=== PATIENT | male | born 1935 | race Caucasian/White ===

== ENCOUNTER 2019-12-20 23:44 | Inpatient (IN) | payer MEDICARE, OTHER ==
[~2019-12-20] VITALS: Ht 175.3 cm; Wt 86.2 kg
[~2019-12-20 23:44] MED LIST: CEPH500T PO
[2019-12-21 01:10] VITALS: BP 155/88
--- NOTE | 2019-12-21 01:10 | NUR ---
GPS RN-NOTE:ADMISSION ADMITTED AN 84-YR OLD MALE, FROM [facility]. ADMITTED ON A 5150 FOR DTS. PER HOLD, PT HAS A HISTORY OF DEPRESSION. GRIEVING OVER THE LOSS OF HIS CAT. HE TOOK APPROX 25 PILLS OF XANAX IN AN EFFORT TO "END IT ALL". UPON FACE TO FACE ASSESSMENT, PT IS A/OX3, COOPERATIVE, DEPRESSED, GUARDED, UNKEMPT AND DISHEVELED. PT HAS SUPRAPUBIC CATHETER FR 16, PT ABLE TO VOID WITHOUT ANY DIFFICULTY. PT WAS ADVISED OF HIS HOLD. PT'S RIGHTS HANDBOOK AND A GUIDE TO PRESCRIPTION MEDICATIONS GIVEN. IN NO APPARENT DISTRESS NOTED. NO BELONGINGS/CONTRABAND TAKEN FROM PT. AT ADMISSION. PT. IS UNDER THE PSYCHIATRIC CARE OF DR. LOPEZ ORDERS OBTAINED. AND THE MEDICAL CARE OF DR. BERG. MD AWARE OF PATIENT'S ADMISSION AND MEDS NEEDS TO BE RECONCILED. SKIN BODY ASSESSMENT DONE. WOUND CONSULT TRIGGERED. PT REFUSED FLU VACCINE, OFFERED X3, EDUCATED PT REGARDING THE IMPORTANCE OF TREATMENT COMPLIANCE. PT. CONTINUED TO REFUSE. BED LOCKED AND PLACED IN LOWEST POSITION TO MAINTAIN SAFETY. FALL PRECAUTIONS IMPLEMENTED. WILL CONTINUE TO MONITOR Q15 MIN ROUNDS FOR SAFETY AND BEHAVIOR. Addendum: 12/21/19 at 0558 by MERT WEBBER RN PATIENT IS ALERT AND ORIENTED X1-2, CONFUSED AND DISORGANIZED
[2019-12-21] MEDS ORDERED: VENL75CA62 PO (01:34)
[2019-12-21] MEDS ORDERED: METF-440 PO (01:34)
[2019-12-21] MEDS ORDERED: ALPR0.255 PO (01:34)
[2019-12-21] MEDS ORDERED: FINA5TAB11 PO (01:34)
[2019-12-21] MEDS ORDERED: OMEP20CA15 PO (01:34)
[2019-12-21] MEDS ORDERED: TAMS-12 PO (01:37)
[2019-12-21] MEDS ORDERED: LEVE500T20 PO (01:37)
[2019-12-21] MEDS ORDERED: FAMO20TA8 PO (01:39)
[2019-12-21] MEDS ORDERED: ATOR40TA PO (01:46)
[2019-12-21] MEDS ORDERED: CLOP75TA15 PO (01:49)
[2019-12-21] MEDS ORDERED: MIRT15TA PO (01:51)
[2019-12-21] MEDS ORDERED: DULO60CA45 PO (01:57)
[2019-12-21] MEDS ORDERED: LORAZEPAM 0.5 MG TABLET PO PRN (02:30)
[2019-12-21] MEDS ORDERED: ZOLPIDEM TARTRATE 5 MG TABLET PO PRN (02:30)
[2019-12-21] MEDS ORDERED: ACETAMINOPHEN 325 MG TABLET PO PRN (02:30)
[2019-12-21] MEDS ORDERED: BLOOD SUGAR DIAGNOSTIC 1 EACH STRIP IN ONE (02:30)
[2019-12-21] MEDS ORDERED: MAGNESIUM HYDROXIDE 30 ML UDC PO PRN (02:30)
[2019-12-21] MEDS ORDERED: MAG HYDROX/AL HYDROX/SIMETH 30 ML UDC PO PRN (02:30)
--- NOTE | 2019-12-21 06:00 | NUR ---
GPS-RN NOTE: ANXIETY PATIENT IS ANXIOUS AND RESTLESS. ADMINISTERED ATIVAN 0.5MG PO ORDERED. WILL CONTINUE TO MONITOR PT'S SAFETY.
[2019-12-21 07:42] LABS: BASOPHILS % (AUTO) 0.5 % (0.0-2.0); EOSINOPHILS % (AUTO) 4.9 % (0.0-6.0); HEMATOCRIT 45 % (39-51); HEMOGLOBIN 14.8 g/dL (13.5-17.5); LYMPHOCYTES # (AUTO) 1.9 /CMM (0.8-4.8); MEAN CORPUSCULAR HGB CONC 33 g/dl (31.0-36.0); MEAN CORPUSCULAR VOLUME 90 fL (80-96); MONOCYTES # (AUTO) 0.4 /CMM (0.1-1.30); MONOCYTES % (AUTO) 3.9 % (2.0-12.0); NEUTROPHILS # (AUTO) 6.4 /CMM (1.8-8.9); NEUTROPHILS % (AUTO) 69.7 % (43.0-81.0); PLATELET COUNT (AUTO) 297 /CMM (150-450); RED BLOOD CELL COUNT(AUTO) 4.98 MIL/uL (4.5-6.0); WHITE BLOOD COUNT (AUTO) 9.3 K/uL (4.3-11.0)
[2019-12-21 07:53] LABS: CALCIUM, SERUM 9.3 mg/dL (8.5-10.1); CREATININE 0.9 mg/dL (0.6-1.3); POTASSIUM 3.9 mmol/L (3.5-5.1)
[2019-12-21 08:00] VITALS: BP 142/82
--- NOTE | 2019-12-21 09:02 | NUR ---
GPS RN NOTES REPORT GIVEN TO CHARGE NURSE RALPH FOR CONTINUATION OF CARE.
[2019-12-21 09:18] LABS: BILIRUBIN,URINE NEGATIVE (NEGATIVE); BLOOD, URINE TRACE Ery/uL (NEGATIVE); COLOR,URINE YELLOW (YELLOW); KETONES,URINE NEGATIVE (NEGATIVE); LEUKOCYTE ESTERASE ,URINE SMALL (NEGATIVE); NITRITE, URINE NEGATIVE (NEGATIVE); PH,URINE 6.5 (5.0-8.0); PROTEIN,URINE NEGATIVE (NEGATIVE); UGLUCOSE NEGATIVE (NEGATIVE); UROBILINOGEN,URINE 0.2 EU/dL (0.2)
[2019-12-21 09:22] LABS: APPEARANCE,URINE SLIGHTLY HAZY (CLEAR)
[2019-12-21] MEDS: FINASTERIDE (5 MG) 5 MG TABLET PO SCH (09:22)
[2019-12-21] MEDS: TAMSULOSIN 0.4 MG CAP.SR.24H PO SCH ×2 (09:22→17:14)
[2019-12-21] MEDS: CLOPIDOGREL BISULFATE 75 MG TABLET PO SCH (09:22)
[2019-12-21] MEDS: FAMOTIDINE (20 MG) 20 MG TABLET PO SCH ×2 (09:22→17:14)
[2019-12-21] MEDS: METFORMIN 500 MG TABLET PO SCH ×2 (09:22→17:14)
[2019-12-21] MEDS: LEVETIRACETAM (250 MG) 250 MG TABLET PO SCH ×2 (09:22→17:14)
[2019-12-21 09:32] LABS: RBC,URINE 0-2 /HPF (0-2)
[2019-12-21 09:33] LABS: BACTERIA,URINE Few /HPF (None Seen); SQUAMOUS EPITHELIAL CELL,UR Rare /HPF (None Seen)
[2019-12-21 16:00] VITALS: BP 128/67
[2019-12-21] MEDS: CEPHALEXIN MONOHYDRATE 500 MG CAPSULE PO SCH (17:14)
--- NOTE | 2019-12-21 17:44 | NUR ---
RN NOTE : NOTIFIED OF SUPRAPUBIC CATH ,NO 1:1 ORDER ,PATIENT CALM AND COOPERATIVE .
--- NOTE | 2019-12-21 18:05 | NUR ---
RN NOTES UA COLLECTED SUPRAPUBIC CATHETER. CALLED LAB FOR FHA UNDERWRITER.
[2019-12-21 19:58] VITALS: BP 139/73
[2019-12-21] MEDS: ATORVASTATIN 40 MG TABLET PO SCH (21:34)
[2019-12-21] MEDS: QUETIAPINE FUMARATE 25 MG TABLET PO SCH (21:34)
[2019-12-22 08:00] VITALS: BP 139/73
[2019-12-22] MEDS: PANTOPRAZOLE 40 MG TABLET.DR PO SCH (08:05)
[2019-12-22] MEDS: LEVETIRACETAM (250 MG) 250 MG TABLET PO SCH ×2 (08:23→16:46)
[2019-12-22] MEDS: FAMOTIDINE (20 MG) 20 MG TABLET PO SCH ×2 (08:23→16:46)
[2019-12-22] MEDS: CLOPIDOGREL BISULFATE 75 MG TABLET PO SCH (08:23)
[2019-12-22] MEDS: FINASTERIDE (5 MG) 5 MG TABLET PO SCH (08:23)
[2019-12-22] MEDS: TAMSULOSIN 0.4 MG CAP.SR.24H PO SCH ×2 (08:23→16:46)
[2019-12-22] MEDS: METFORMIN 500 MG TABLET PO SCH ×2 (08:23→16:48)
[2019-12-22] MEDS: VENLAFAXINE XR 75 MG CAP.SR.24H PO SCH (08:25)
[2019-12-22] MEDS: CEPHALEXIN MONOHYDRATE 500 MG CAPSULE PO SCH ×2 (08:26→16:46)
--- NOTE | 2019-12-22 13:36 | NUR ---
FAMILY CONTACT: ROBBIN spoke with patient's Marilyn ([phone]) and collected collateral information (see SW's assessment). Marilyn will be picking up the patient and take him home upon discharge.
--- NOTE | 2019-12-22 13:36 | NUR ---
INITIAL DISCHARGE PLAN: Patient currently resides at home [address] [place] [id number] with Marilyn, ([phone]). Patient will return back home upon discharge. Marilyn stated she will grain picker the patient and take home at discharge. ROBBIN will continue to work with pt, family, and MD to ensure a safe and proper discharge plan.
[2019-12-22 16:00] VITALS: BP 137/67
--- NOTE | 2019-12-22 19:47 | NUR ---
GPS RN NO0TES PATIENT IN BED, ASLEEP, EASILY AROUSED. ALERT AND ORIENTED X 1. CONFUSED, DISORGANIZED, COOPERATIVE. BREATHING EVEN AND UNLABORED ON ROOM AIR. SHOWS NO SIGNS OF ACUTE RESPIRATORY DISTRESS, NO ACUTE PAIN. DENIES SI AND HI. SAFETY PRECAUTIONS IN PLACE. BED IN LOWEST POSITION, LOCKED, AND WILL CONTINUE TO MONITOR.
[2019-12-22 20:00] VITALS: BP 123/62
[2019-12-22 20:22] VITALS: BP 123/62
[2019-12-22] MEDS: QUETIAPINE FUMARATE 25 MG TABLET PO SCH (22:07)
[2019-12-22] MEDS: ATORVASTATIN 40 MG TABLET PO SCH (22:08)
[2019-12-23] MEDS: PANTOPRAZOLE 40 MG TABLET.DR PO SCH (07:53)
[2019-12-23 08:00] VITALS: BP 121/96
[2019-12-23] MEDS: CEPHALEXIN MONOHYDRATE 500 MG CAPSULE PO SCH ×2 (08:22→16:24)
[2019-12-23] MEDS: VENLAFAXINE XR 75 MG CAP.SR.24H PO SCH (08:22)
[2019-12-23] MEDS: TAMSULOSIN 0.4 MG CAP.SR.24H PO SCH ×2 (08:22→16:24)
[2019-12-23] MEDS: METFORMIN 500 MG TABLET PO SCH ×2 (08:22→16:24)
[2019-12-23] MEDS: FAMOTIDINE (20 MG) 20 MG TABLET PO SCH ×2 (08:22→16:24)
[2019-12-23] MEDS: FINASTERIDE (5 MG) 5 MG TABLET PO SCH (08:22)
[2019-12-23] MEDS: LEVETIRACETAM (250 MG) 250 MG TABLET PO SCH ×2 (08:22→16:24)
[2019-12-23] MEDS: CLOPIDOGREL BISULFATE 75 MG TABLET PO SCH (08:22)
--- NOTE | 2019-12-23 10:37 | NUR ---
WOUND CARE CONSULT: PT PRESENTS WITH SUPRAPUBIC CATH, REDNESS TO BILATERAL GROIN FOLDS, LEFT LOWER LEG WEEPING AREAS, AND RT PLANTAR FOOT DRY ULCER WITH CALLUS, PRESENT ON ADMISSION. RECOMMEND DPM CONSULT. DR DELGADO NOTIFIED OF CONSULT REQUEST. RECOMMENDATIONS MADE FOR SKIN PROTECTION. DISCUSSED WITH NURSING STAFF. WILL SEE PRN. BEAN IN AGREEMENT WITH PLAN OF CARE.
--- NOTE | 2019-12-23 10:48 | NUR ---
FAMILY CONTACT: SW received a call from patient's Mariya ([phone]) who wanted an update on pts status. SW provided with anticipated average length of stay and also transferred the call to the nurses station for a daily nurse report.
[2019-12-23 16:00] VITALS: BP 117/59
[2019-12-23] MEDS: CLOTRIMAZOLE 1% 15 GM TUBE TP SCH (16:59)
[2019-12-23 20:05] VITALS: BP 134/70
--- NOTE | 2019-12-23 20:46 | NUR ---
GPS RN NOTES: RECEIVED PT LAYING ON BED, A/O 1X. APPEARS DEPRESSED, COOPERATIVE, FLAT AFFECT, WITHDRAWN, PASSIVE, RESTLESS, DISORGANIZED, DISORIENTED, CONFUSED, REDIRECTABLE. 420ML URINE EMPTIED FROM SUPRA PUBIC CATHETER. OFFERED FLUIDS AND SNACKS TOLERATED. BED IN LOW POSITION AND LOCKED, CALL LIGHT WITHIN REACH. WILL CONTINUE TO MONITOR Q15 MINS AND Q1 HR FOR SAFETY, MOOD, AND BEHAVIOR.
[2019-12-23] MEDS: ATORVASTATIN 40 MG TABLET PO SCH (21:20)
[2019-12-23] MEDS: QUETIAPINE FUMARATE 25 MG TABLET PO SCH (21:20)
--- NOTE | 2019-12-24 06:38 | NUR ---
GPS RN CLOSING NOTES: PT AWAKE, A/O X1. MED COMPLIANT. PT SLEPT INTERMITTENTLY AND SLEPT FOR 4HR THIS SHIFT. WAS UNCOOPERATIVE THIS AM, UPSET THAT HIS HAS NOT CALLED HIM FOR SOME DAYS, REFUSING REDIRECTION, AGITATED, TRYING TO GET OUT OF BED WITHOUT HIS WALKER. OFFERED ATIVAN BUT REFUSED. PT CURRENTLY IN ISAAC CHAIR FOR HIS SAFETY, CALM. NO S/S OF DISTRESS. RESPIRATION EVEN AND UNLABORED WITH EQUAL RISE AND FALL OF THE CHEST ON ROOM AIR. ALL PT CARE NEEDS MET ANTICIPATED. WILL CONTINUE TO MONITOR AND ENDORSE TO AM SHIFT.
[2019-12-24 08:00] VITALS: BP 126/67
[2019-12-24] MEDS: FAMOTIDINE (20 MG) 20 MG TABLET PO SCH ×2 (09:01→17:08)
[2019-12-24] MEDS: PANTOPRAZOLE 40 MG TABLET.DR PO SCH (09:02)
[2019-12-24] MEDS: VENLAFAXINE XR 75 MG CAP.SR.24H PO SCH (09:02)
[2019-12-24] MEDS: CEPHALEXIN MONOHYDRATE 500 MG CAPSULE PO SCH ×2 (09:02→17:08)
[2019-12-24] MEDS: TAMSULOSIN 0.4 MG CAP.SR.24H PO SCH ×2 (09:02→17:08)
[2019-12-24] MEDS: METFORMIN 500 MG TABLET PO SCH ×2 (09:02→17:08)
[2019-12-24] MEDS: LEVETIRACETAM (250 MG) 250 MG TABLET PO SCH ×2 (09:02→17:08)
[2019-12-24] MEDS: CLOPIDOGREL BISULFATE 75 MG TABLET PO SCH (09:02)
[2019-12-24] MEDS: FINASTERIDE (5 MG) 5 MG TABLET PO SCH (09:02)
[2019-12-24] MEDS: CLOTRIMAZOLE 1% 15 GM TUBE TP SCH ×2 (09:56→17:49)
--- NOTE | 2019-12-24 14:05 | NUR ---
INDIVIDUAL INTERVENTION: SW assessed pt for suicidality on this present day. Pt denies suicidal ideation and states that the reason he took an overdose in an attempt to suicide was due to his cats . He states that his cat 7 years ago but states that the cat was like his child and he had him for 14 years. He states that his cats has been very difficult and was not coping well at all. Pt states what he did was wrong and states he would never attempt to kill himself again. Pt states he wishes to return home with his . Pt appears more lucid with coherent thought process and speech.
--- NOTE | 2019-12-24 14:11 | NUR ---
FAMILY CONTACT: SW received a call from patient's Mariya ([phone]) who wanted an update on pts status. SW informed her pts antipsychotic was increased from 50mg to 100mg and also informed her that pt is more lucid and coherent. agreed with pts treatment plan.
[2019-12-24 16:00] VITALS: BP 128/71
[2019-12-24 20:07] VITALS: BP 142/61
[2019-12-24] MEDS: ATORVASTATIN 40 MG TABLET PO SCH (21:15)
[2019-12-24] MEDS: QUETIAPINE FUMARATE 25 MG TABLET PO SCH (21:15)
[2019-12-24] MEDS: LORAZEPAM 0.5 MG TABLET PO PRN (22:20)
--- NOTE | 2019-12-25 06:45 | NUR ---
GPS RN CLOSING NOTES: PT SLEEPING COMFORTABLY ON BED. NO BEHAVIORAL ISSUES THIS SHIFT. SLEPT FOR 7HR. NO S/S OF DISTRESS. RESPIRATION EVEN AND UNLABORED WITH EQUAL RISE AND FALL OF THE CHEST ON ROOM AIR. SUPRA PUBIC CATHETER INCISION SITE CLEANED AND BAG EMPTIED, TOTAL URINE OUTPUT THIS SHIFT 1200ML. ALL PT CARE NEEDS MET ANTICIPATED. WILL CONTINUE TO MONITOR AND ENDORSE TO AM SHIFT.
[2019-12-25] MEDS: PANTOPRAZOLE 40 MG TABLET.DR PO SCH (07:52)
[2019-12-25 08:00] VITALS: BP 126/67
[2019-12-25] MEDS: CEPHALEXIN MONOHYDRATE 500 MG CAPSULE PO SCH ×2 (08:44→17:15)
[2019-12-25] MEDS: METFORMIN 500 MG TABLET PO SCH ×2 (08:44→17:15)
[2019-12-25] MEDS: CLOPIDOGREL BISULFATE 75 MG TABLET PO SCH (08:45)
[2019-12-25] MEDS: FINASTERIDE (5 MG) 5 MG TABLET PO SCH (08:45)
[2019-12-25] MEDS: TAMSULOSIN 0.4 MG CAP.SR.24H PO SCH ×2 (08:45→17:15)
[2019-12-25] MEDS: VENLAFAXINE XR 75 MG CAP.SR.24H PO SCH (08:45)
[2019-12-25] MEDS: LEVETIRACETAM (250 MG) 250 MG TABLET PO SCH ×2 (08:45→17:15)
[2019-12-25] MEDS: FAMOTIDINE (20 MG) 20 MG TABLET PO SCH ×2 (08:45→17:20)
[2019-12-25] MEDS: CLOTRIMAZOLE 1% 15 GM TUBE TP SCH ×2 (08:48→17:15)
--- NOTE | 2019-12-25 10:37 | NUR ---
FAMILY CONTACT: SW received a call from patient's Mariya ([phone]) requesting a call from pts psychiatrist. SW notified psychiatrist of 's request.
[2019-12-25 16:05] VITALS: BP 142/70
[2019-12-25 19:49] VITALS: BP 130/59
[2019-12-25 20:05] VITALS: BP 130/59
[2019-12-25] MEDS: ATORVASTATIN 40 MG TABLET PO SCH (21:33)
[2019-12-25] MEDS: QUETIAPINE FUMARATE 25 MG TABLET PO SCH (21:34)
[2019-12-26 08:00] VITALS: BP 128/64
[2019-12-26] MEDS: PANTOPRAZOLE 40 MG TABLET.DR PO SCH (08:25)
[2019-12-26] MEDS: LEVETIRACETAM (250 MG) 250 MG TABLET PO SCH ×2 (09:35→17:10)
[2019-12-26] MEDS: CEPHALEXIN MONOHYDRATE 500 MG CAPSULE PO SCH ×2 (09:35→17:10)
[2019-12-26] MEDS: TAMSULOSIN 0.4 MG CAP.SR.24H PO SCH ×2 (09:35→17:12)
[2019-12-26] MEDS: FINASTERIDE (5 MG) 5 MG TABLET PO SCH (09:35)
[2019-12-26] MEDS: METFORMIN 500 MG TABLET PO SCH ×2 (09:36→17:10)
[2019-12-26] MEDS: FAMOTIDINE (20 MG) 20 MG TABLET PO SCH ×2 (09:36→17:12)
[2019-12-26] MEDS: VENLAFAXINE XR 75 MG CAP.SR.24H PO SCH (09:36)
[2019-12-26] MEDS: CLOPIDOGREL BISULFATE 75 MG TABLET PO SCH (09:41)
[2019-12-26] MEDS: CLOTRIMAZOLE 1% 15 GM TUBE TP SCH ×2 (11:34→16:56)
--- NOTE | 2019-12-26 11:52 | NUR ---
GROUP THERAPY: SW encouraged pt to attend group therapy on this present day. Pt refused stating he wanted to remain in bed as he was tired. SW assessed pt for suicidality, pt denied suicidal ideation.
[2019-12-26 15:59] VITALS: BP 121/60
[2019-12-26 19:39] VITALS: BP 137/65
[2019-12-26 20:07] VITALS: BP 137/65
[2019-12-26] MEDS: QUETIAPINE FUMARATE 25 MG TABLET PO SCH (21:09)
[2019-12-26] MEDS: ATORVASTATIN 40 MG TABLET PO SCH (21:09)
[2019-12-27] MEDS: LORAZEPAM 0.5 MG TABLET PO PRN ×2 (03:07→23:20)
--- NOTE | 2019-12-27 03:07 | NUR ---
GPS RN NOTES ENDORSED PATIENT TO DON FOR CONTINUITY OF CARE.
--- NOTE | 2019-12-27 03:15 | NUR ---
GPS RN NOTES RECEIVED REPORT FOR AHSAN FROM ANTON IGLESIAS.
[2019-12-27 07:56] VITALS: BP 137/62
[2019-12-27] MEDS: FAMOTIDINE (20 MG) 20 MG TABLET PO SCH ×2 (08:15→16:48)
[2019-12-27] MEDS: TAMSULOSIN 0.4 MG CAP.SR.24H PO SCH ×2 (08:15→16:48)
[2019-12-27] MEDS: VENLAFAXINE XR 75 MG CAP.SR.24H PO SCH (08:15)
[2019-12-27] MEDS: CEPHALEXIN MONOHYDRATE 500 MG CAPSULE PO SCH ×2 (08:15→16:48)
[2019-12-27] MEDS: CLOPIDOGREL BISULFATE 75 MG TABLET PO SCH (08:15)
[2019-12-27] MEDS: PANTOPRAZOLE 40 MG TABLET.DR PO SCH (08:15)
[2019-12-27] MEDS: FINASTERIDE (5 MG) 5 MG TABLET PO SCH (08:15)
[2019-12-27] MEDS: METFORMIN 500 MG TABLET PO SCH ×2 (08:15→16:48)
[2019-12-27] MEDS: LEVETIRACETAM (250 MG) 250 MG TABLET PO SCH ×2 (08:15→16:48)
[2019-12-27] MEDS: CLOTRIMAZOLE 1% 15 GM TUBE TP SCH ×2 (10:09→16:49)
--- NOTE | 2019-12-27 12:03 | NUR ---
GPS/RN-NOTES PATIENT C/O CONSTIPATION,MOM 30ML GIVEN PRN ORDER. WILL CONT. MONITORING.
--- NOTE | 2019-12-27 14:56 | NUR ---
GPS/RN-NOTES PATIENT C/O OF CONSTIPATION STATED" I FEEL IT BUT IT'S SO HARD I NEED SOMETHING FOR IT". MOM WAS GIVEN EARLIER BUT NO EFFECT. DR. GONZALEZ MADE AWARE WITH T.O ORDER OF DULCOLAX SUP.PRN DAILY AND MIRALAX 17GMS X1 .NOTED AND CARRIED OUT.
[2019-12-27] MEDS ORDERED: BISACODYL SUPP (10 MG) 10 MG/SUPP.RECT SUPP.RECT RC PRN (15:00)
[2019-12-27] MEDS ORDERED: POLYETHYLENE GLYCOL 3350 17 GM POWD.PACK PO ONE (15:00)
--- NOTE | 2019-12-27 15:27 | NUR ---
GPS/RN-NOTES DULCOLAX SUP. GIVEN PRN ORDER FOR CONSTIPATION. WILL CONT. MONITORING. FOR EFFECTIVENESS.
--- NOTE | 2019-12-27 15:50 | NUR ---
GPS/RN-NOTES PATIENT HAD X1 LARGE BM AT THIS TIME.
[2019-12-27 16:09] VITALS: BP 158/67
[2019-12-27 19:58] VITALS: BP 150/72
[2019-12-27 20:15] VITALS: BP 150/72
[2019-12-27] MEDS: ATORVASTATIN 40 MG TABLET PO SCH (21:11)
[2019-12-27] MEDS: QUETIAPINE FUMARATE 25 MG TABLET PO SCH (21:11)
[2019-12-28 08:00] VITALS: BP 161/67
[2019-12-28] MEDS: PANTOPRAZOLE 40 MG TABLET.DR PO SCH (08:07)
[2019-12-28] MEDS: CEPHALEXIN MONOHYDRATE 500 MG CAPSULE PO SCH (08:33)
[2019-12-28] MEDS: CLOPIDOGREL BISULFATE 75 MG TABLET PO SCH (08:33)
[2019-12-28] MEDS: FINASTERIDE (5 MG) 5 MG TABLET PO SCH (08:34)
[2019-12-28] MEDS: METFORMIN 500 MG TABLET PO SCH ×2 (08:34→17:18)
[2019-12-28] MEDS: LEVETIRACETAM (250 MG) 250 MG TABLET PO SCH ×2 (08:34→17:17)
[2019-12-28] MEDS: TAMSULOSIN 0.4 MG CAP.SR.24H PO SCH ×2 (08:34→17:18)
[2019-12-28] MEDS: CLOTRIMAZOLE 1% 15 GM TUBE TP SCH ×2 (08:34→17:27)
[2019-12-28] MEDS: FAMOTIDINE (20 MG) 20 MG TABLET PO SCH ×2 (08:34→17:18)
[2019-12-28] MEDS: VENLAFAXINE XR 75 MG CAP.SR.24H PO SCH (08:34)
[2019-12-28 16:00] VITALS: BP 158/63
[2019-12-28 20:00] VITALS: BP 135/59
[2019-12-28] MEDS: QUETIAPINE FUMARATE 25 MG TABLET PO SCH (21:18)
[2019-12-28] MEDS: ATORVASTATIN 40 MG TABLET PO SCH (21:18)
--- NOTE | 2019-12-29 07:10 | NUR ---
GPS RN NOTES: PT. RESTING IN HIS ROOM, CALM NOTED AT THIS TIME . NO S/S OF DISTRESS NOTED ,NO CHANGE OF CONDITION NOTED , ALL CARE NEEDS MET ANTICIPATED. MED COMPLIANT ,NO BEHAVIOR PROBLEMS NOTED ,WILL CONTINUE TO MONITOR FOR SAFETY BEHAVIOR, AND ENDORSE TO AM SHIFT FOR CONTINUITY OF CARE.
[2019-12-29 08:00] VITALS: BP 119/56
[2019-12-29] MEDS: PANTOPRAZOLE 40 MG TABLET.DR PO SCH (08:14)
[2019-12-29] MEDS: METFORMIN 500 MG TABLET PO SCH ×2 (08:38→17:20)
[2019-12-29] MEDS: LEVETIRACETAM (250 MG) 250 MG TABLET PO SCH ×2 (08:38→17:20)
[2019-12-29] MEDS: TAMSULOSIN 0.4 MG CAP.SR.24H PO SCH ×2 (08:38→17:20)
[2019-12-29] MEDS: CLOPIDOGREL BISULFATE 75 MG TABLET PO SCH (08:38)
[2019-12-29] MEDS: VENLAFAXINE XR 75 MG CAP.SR.24H PO SCH (08:38)
[2019-12-29] MEDS: FAMOTIDINE (20 MG) 20 MG TABLET PO SCH ×2 (08:38→17:20)
[2019-12-29] MEDS: FINASTERIDE (5 MG) 5 MG TABLET PO SCH (08:38)
[2019-12-29] MEDS: CLOTRIMAZOLE 1% 15 GM TUBE TP SCH ×2 (09:28→17:21)
[2019-12-29 16:00] VITALS: BP 124/66
[2019-12-29 19:01] LABS: APPEARANCE,URINE CLEAR (CLEAR); BILIRUBIN,URINE NEGATIVE (NEGATIVE); BLOOD, URINE TRACE-INTA Ery/uL (NEGATIVE); COLOR,URINE YELLOW (YELLOW); KETONES,URINE NEGATIVE (NEGATIVE); LEUKOCYTE ESTERASE ,URINE NEGATIVE (NEGATIVE); NITRITE, URINE NEGATIVE (NEGATIVE); PH,URINE 5.5 (5.0-8.0); PROTEIN,URINE NEGATIVE (NEGATIVE); UGLUCOSE NEGATIVE (NEGATIVE); UROBILINOGEN,URINE 0.2 EU/dL (0.2)
[2019-12-29 19:11] LABS: WBC,URINE 0-2 /HPF (0-3)
[2019-12-29 19:12] LABS: BACTERIA,URINE None seen /HPF (None Seen); SQUAMOUS EPITHELIAL CELL,UR None Seen /HPF (None Seen)
[2019-12-29 19:58] VITALS: BP 123/63
[2019-12-29] MEDS: ATORVASTATIN 40 MG TABLET PO SCH (21:36)
[2019-12-29] MEDS ORDERED: QUETIAPINE FUMARATE 25 MG TABLET PO SCH (22:00)
--- NOTE | 2019-12-29 23:27 | NUR ---
GPS RN CLOSING NOTE: DRESSED PT WOUND ON LOWER LEFT LEG USING XEROFORM AND MEPILEX ORDERED. TOLERATED WELL. NO S/S OF DISTRESS. WILL CONTINUE TO MONITOR.
--- NOTE | 2019-12-30 06:12 | NUR ---
GPS RN CLOSING NOTES: PT LAYING COMFORTABLY ON BED. NO BEHAVIORAL ISSUES THIS SHIFT. SLEPT FOR 5.5HR. NO S/S OF DISTRESS. RESPIRATION EVEN AND UNLABORED WITH EQUAL RISE AND FALL OF THE CHEST ON ROOM AIR. SUPRA PUBIC CATHETER INCISION SITE CLEANED AND BAG EMPTIED X3, TOTAL URINE OUTPUT THIS SHIFT 1050ML. ALL PT CARE NEEDS MET ANTICIPATED. WILL CONTINUE TO MONITOR AND ENDORSE TO AM SHIFT.
[2019-12-30 08:00] VITALS: BP 135/69
[2019-12-30] MEDS: CLOPIDOGREL BISULFATE 75 MG TABLET PO SCH (08:15)
[2019-12-30] MEDS: TAMSULOSIN 0.4 MG CAP.SR.24H PO SCH ×2 (08:15→17:24)
[2019-12-30] MEDS: VENLAFAXINE XR 75 MG CAP.SR.24H PO SCH (08:16)
[2019-12-30] MEDS: FAMOTIDINE (20 MG) 20 MG TABLET PO SCH ×2 (08:16→17:24)
[2019-12-30] MEDS: PANTOPRAZOLE 40 MG TABLET.DR PO SCH (08:16)
[2019-12-30] MEDS: METFORMIN 500 MG TABLET PO SCH ×2 (08:16→17:24)
[2019-12-30] MEDS: LEVETIRACETAM (250 MG) 250 MG TABLET PO SCH ×2 (08:16→17:24)
[2019-12-30] MEDS: FINASTERIDE (5 MG) 5 MG TABLET PO SCH (08:16)
[2019-12-30] MEDS: CLOTRIMAZOLE 1% 15 GM TUBE TP SCH ×2 (08:17→17:25)
--- NOTE | 2019-12-30 09:33 | NUR ---
INDIVIDUAL MEETING WITH PT AND MD: ROBBIN and met with pt to discuss his discharge plan. Pt stated he is feeling weird stating, "last night I was walking on the roof." discussed changing his medication and pt stated that he liked it then stated he just needed to get out of here because "this place is making me crazy." informed pt that does not feel safe with pt returning home due to his aggressive tempter, pt stated that he refused to be discharged to a SNF and wanted to go home.
--- NOTE | 2019-12-30 09:36 | NUR ---
FAMILY CONTACT: SW contacted patient's Mariya ([phone]) to discuss pts discharge plan. SW informed her that pt is refusing to be discharged at a SNF and stated that she prefers pt to return home but states that pt is still not stable and states that this morning pt was making bizarre statements. SW stated that MD and SW met with pt and agreed that pt is still not stable and informed her that pts psychotropic medication was changed yesterday. SW stated that as of today pt does not have a discharge date and stated that MD will continue to monitor pts behaviors. agreed with treatment plan.
[2019-12-30 16:00] VITALS: BP 126/77
[2019-12-30 19:51] VITALS: BP 158/64
[2019-12-30] MEDS: QUETIAPINE FUMARATE 100 MG TABLET PO SCH (21:16)
[2019-12-30] MEDS: ATORVASTATIN 40 MG TABLET PO SCH (21:16)
[2019-12-31 08:00] VITALS: BP 153/74
[2019-12-31] MEDS: PANTOPRAZOLE 40 MG TABLET.DR PO SCH (08:16)
[2019-12-31] MEDS: METFORMIN 500 MG TABLET PO SCH ×2 (08:16→16:33)
[2019-12-31] MEDS: CLOPIDOGREL BISULFATE 75 MG TABLET PO SCH (08:16)
[2019-12-31] MEDS: TAMSULOSIN 0.4 MG CAP.SR.24H PO SCH ×2 (08:16→16:33)
[2019-12-31] MEDS: FINASTERIDE (5 MG) 5 MG TABLET PO SCH (08:16)
[2019-12-31] MEDS: FAMOTIDINE (20 MG) 20 MG TABLET PO SCH ×2 (08:16→16:33)
[2019-12-31] MEDS: VENLAFAXINE XR 150 MG CAP.SR.24H PO SCH (08:17)
[2019-12-31] MEDS: CLOTRIMAZOLE 1% 15 GM TUBE TP SCH ×2 (08:18→16:51)
[2019-12-31] MEDS: LEVETIRACETAM (250 MG) 250 MG TABLET PO SCH ×2 (08:37→16:33)
--- NOTE | 2019-12-31 10:15 | NUR ---
FAMILY CONTACT: SW received a call from patient's Mariya ([phone]) who wanted to make sure that ROBBIN and were aware that pt has never become physically aggressive with her and that when pt gets upset he throws things in the house but has never become physically aggressive with . states that she wishes for pt to return home once stable.
--- NOTE | 2019-12-31 14:26 | NUR ---
GROUP THERAPY: Pt was present but unable to participate due to psychosis. Pt is only alert to self and unable to engage in conversation. Pt did not respond to SW verbal cues.
[2019-12-31 16:00] VITALS: BP 135/85
--- NOTE | 2019-12-31 17:56 | NUR ---
gps rn note: pt transfer to 321 a report given to esteban SHEPHERD
--- NOTE | 2019-12-31 18:00 | NUR ---
GPS OVERFLOW RN NOTES: RECEIVED PATIENT FROM GPS, TRANSFERRED PATIENT TO BED. ORIENTED TO ROOM, UNIT AND CALL LIGHT. ALERT AND ORIENTED X2. PATIENT RESTING COMFORTABLY IN BED. HOB ELEVATED. NO SOB. SITTER AT BEDSIDE. REMAINS CALM AT THIS TIME, WATCHING TV. DENIES ANY C/O PAIN NOR DISCOMFORT AT THIS TIME. SUPRAPUBIC CATH INTACT AND PATENT DRAINING YELLOW COLORED URINE VIA BEDSIDE VIA GRAVITY. NO S/S OF ACUTE DISTRESS. NO BEHAVIORAL PROBLEMS OBSERVED. BED IN LOWEST POSITION, LOCKED. BED ALARM ON. FREQUENT VISUAL CHECK DONE. IN NO APPARENT DISTRESS.
[2019-12-31 19:48] VITALS: BP 155/72
--- NOTE | 2019-12-31 20:00 | NUR ---
GPS OV RN NOTES RECEIVED ON BED CALM AND QUIET,WATCHING TV PROGRAM,BREATHING REGULAR,NOT IN ANY FORM FO DISTRESS,ON 14 DAY HOLD FOR PSYCHOSIS,MAJOR DEPRESSION.WITH SUPRA PUBIC CATH IN PLACE DRAINING YELLOWISH URINE.PATIENT AMBULATE WITH WALKER,WITH ASSIST.WILL CONTINUE TO MONITOR BEHAVIOR AND MANAGE ACCORDINGLY.SITTER AT BEDSIDE.
--- NOTE | 2019-12-31 21:30 | NUR ---
MS RN NOTES VERY ANXIOUS,GETTING OUT OF BED AND COMBATIVE,TRYING TO HIT THE SITTER.SATURATOR OPERATOR AT BEDSIDE.
[2019-12-31] MEDS: ATORVASTATIN 40 MG TABLET PO SCH (21:36)
[2019-12-31] MEDS: LORAZEPAM 0.5 MG TABLET PO PRN (21:37)
[2019-12-31] MEDS: QUETIAPINE FUMARATE 100 MG TABLET PO SCH (21:37)
--- NOTE | 2019-12-31 23:00 | NUR ---
GPS RN NOTE [facility], RECEIVED REPORT FROM ANTON RALPH. PER REPORT PT WAS NON COMPLIANT WITH STAFF AND TREATMENT AND MEDICATION, PT IS A/O X2, CONFUSED, LABILE MOOD, ANXIOUS AND UNPREDICTABLE, OF NOW PT IS COMPLIANT WITH STAFF AND TREATMENT. WILL CONTINUE TO MONITOR Q15MIN FOR SFAETY AND BEHAVIOR.
--- NOTE | 2019-12-31 23:00 | NUR ---
GPS OV RN NOTES TRANSFER BACK TO MAIN GPS FOR FURTHER MONITORING.
[2020-01-01 08:00] VITALS: BP 139/60
[2020-01-01] MEDS: FAMOTIDINE (20 MG) 20 MG TABLET PO SCH ×2 (08:14→16:24)
[2020-01-01] MEDS: VENLAFAXINE XR 150 MG CAP.SR.24H PO SCH (08:14)
[2020-01-01] MEDS: CLOPIDOGREL BISULFATE 75 MG TABLET PO SCH (08:15)
[2020-01-01] MEDS: METFORMIN 500 MG TABLET PO SCH ×2 (08:15→16:24)
[2020-01-01] MEDS: PANTOPRAZOLE 40 MG TABLET.DR PO SCH (08:15)
[2020-01-01] MEDS: LEVETIRACETAM (250 MG) 250 MG TABLET PO SCH ×2 (08:15→16:24)
[2020-01-01] MEDS: TAMSULOSIN 0.4 MG CAP.SR.24H PO SCH ×2 (08:15→16:24)
[2020-01-01] MEDS: FINASTERIDE (5 MG) 5 MG TABLET PO SCH (08:15)
--- NOTE | 2020-01-01 08:15 | NUR ---
RN NOTE PROSCAR 5 MG BARCODE IS NOT SCANNED DUE TO BARCODE WAS FADED.
[2020-01-01] MEDS: CLOTRIMAZOLE 1% 15 GM TUBE TP SCH ×2 (09:00→17:44)
[2020-01-01] MEDS ORDERED: hydrOXYzine PAMOATE 25 MG CAPSULE PO PRN (11:30)
[2020-01-01 16:00] VITALS: BP 137/62
[2020-01-01 19:46] VITALS: BP 122/55
[2020-01-01 20:13] VITALS: BP 129/72
[2020-01-01] MEDS: ATORVASTATIN 40 MG TABLET PO SCH (21:12)
[2020-01-01] MEDS: QUETIAPINE FUMARATE 100 MG TABLET PO SCH (21:12)
--- NOTE | 2020-01-02 02:50 | NUR ---
GPS RN NOTE PATIENT WOKE UP, TRIED TO PUT HIS SUPRA PUBIC CATHETER BAG INTO HIS URINAL, WHEN ATTEMPTED TO REDIRECT, PT. GOT UPSET, LABILE, HYPERVERBAL. GAVE HIM SPACE TO CALM DOWN. CHARGE NURSE ALSO REDIRECTED THE PATIENT. PT. WAS PARANOID & SUSPICIOUS, STATED" THERE IS SOMETHING GOING ON HERE, I NEED TO FIND OUT." PT. WAS REDIRECTABLE AFTER A WHILE & FELL ASLEEP AGAIN.
[2020-01-02 08:04] VITALS: BP 123/71
[2020-01-02] MEDS: TAMSULOSIN 0.4 MG CAP.SR.24H PO SCH ×2 (08:38→16:49)
[2020-01-02] MEDS: PANTOPRAZOLE 40 MG TABLET.DR PO SCH (08:38)
[2020-01-02] MEDS: CLOTRIMAZOLE 1% 15 GM TUBE TP SCH ×2 (08:38→16:49)
[2020-01-02] MEDS: FINASTERIDE (5 MG) 5 MG TABLET PO SCH (08:38)
[2020-01-02] MEDS: LEVETIRACETAM (250 MG) 250 MG TABLET PO SCH ×2 (08:38→16:49)
[2020-01-02] MEDS: METFORMIN 500 MG TABLET PO SCH ×2 (08:38→16:49)
[2020-01-02] MEDS: CLOPIDOGREL BISULFATE 75 MG TABLET PO SCH (08:39)
[2020-01-02] MEDS: FAMOTIDINE (20 MG) 20 MG TABLET PO SCH ×2 (08:39→16:49)
[2020-01-02] MEDS: VENLAFAXINE XR 150 MG CAP.SR.24H PO SCH (08:39)
[2020-01-02 16:00] VITALS: BP 127/62
[2020-01-02 19:49] VITALS: BP 135/59
[2020-01-02 19:52] VITALS: BP 155/57
--- NOTE | 2020-01-02 20:15 | NUR ---
GPS RN NOTE: WOUND DRESSING PER AM RN REPORT, LEFT LOWER LEG WOUND DRESSING WAS NOT DONE IN AM SHIFT. PATIENT IS CALM & RELAXED AT THIS TIME. LEFT LOWER LEG WOUND DRESSING DONE ORDERED. NO S/S OF INFECTION NOTED. WILL CONTINUE TO MONITOR.
[2020-01-02] MEDS: QUETIAPINE FUMARATE 100 MG TABLET PO SCH (21:25)
[2020-01-02] MEDS: ATORVASTATIN 40 MG TABLET PO SCH (21:25)
[2020-01-03 08:00] VITALS: BP 115/58
[2020-01-03] MEDS: PANTOPRAZOLE 40 MG TABLET.DR PO SCH (08:53)
[2020-01-03] MEDS: FAMOTIDINE (20 MG) 20 MG TABLET PO SCH ×2 (08:53→16:32)
[2020-01-03] MEDS: TAMSULOSIN 0.4 MG CAP.SR.24H PO SCH ×2 (08:54→16:32)
[2020-01-03] MEDS: LEVETIRACETAM (250 MG) 250 MG TABLET PO SCH ×2 (08:54→16:32)
[2020-01-03] MEDS: VENLAFAXINE XR 150 MG CAP.SR.24H PO SCH (08:54)
[2020-01-03] MEDS: CLOTRIMAZOLE 1% 15 GM TUBE TP SCH ×2 (08:54→16:33)
[2020-01-03] MEDS: FINASTERIDE (5 MG) 5 MG TABLET PO SCH (08:55)
[2020-01-03] MEDS: METFORMIN 500 MG TABLET PO SCH ×2 (08:55→16:32)
[2020-01-03] MEDS: CLOPIDOGREL BISULFATE 75 MG TABLET PO SCH (08:55)
[2020-01-03 16:00] VITALS: BP 137/65
[2020-01-03 20:49] VITALS: BP 131/57
[2020-01-03] MEDS: ATORVASTATIN 40 MG TABLET PO SCH (21:22)
[2020-01-03] MEDS: QUETIAPINE FUMARATE 100 MG TABLET PO SCH (21:22)
[2020-01-04 08:00] VITALS: BP 112/61
[2020-01-04] MEDS: FINASTERIDE (5 MG) 5 MG TABLET PO SCH (08:23)
[2020-01-04] MEDS: CLOPIDOGREL BISULFATE 75 MG TABLET PO SCH (08:23)
[2020-01-04] MEDS: TAMSULOSIN 0.4 MG CAP.SR.24H PO SCH ×2 (08:24→16:39)
[2020-01-04] MEDS: LEVETIRACETAM (250 MG) 250 MG TABLET PO SCH ×2 (08:24→16:39)
[2020-01-04] MEDS: PANTOPRAZOLE 40 MG TABLET.DR PO SCH (08:24)
[2020-01-04] MEDS: VENLAFAXINE XR 150 MG CAP.SR.24H PO SCH (08:24)
[2020-01-04] MEDS: FAMOTIDINE (20 MG) 20 MG TABLET PO SCH ×2 (08:24→16:38)
[2020-01-04] MEDS: METFORMIN 500 MG TABLET PO SCH ×2 (08:24→16:38)
[2020-01-04] MEDS: CLOTRIMAZOLE 1% 15 GM TUBE TP SCH ×2 (09:59→16:39)
[2020-01-04 16:00] VITALS: BP 104/55
[2020-01-04 20:17] VITALS: BP 131/55
[2020-01-04] MEDS: ATORVASTATIN 40 MG TABLET PO SCH (21:16)
[2020-01-04] MEDS: QUETIAPINE FUMARATE 100 MG TABLET PO SCH (21:17)
[2020-01-05] MEDS: PANTOPRAZOLE 40 MG TABLET.DR PO SCH (07:35)
[2020-01-05 08:00] VITALS: BP 148/57
[2020-01-05] MEDS: TAMSULOSIN 0.4 MG CAP.SR.24H PO SCH ×2 (08:30→17:09)
[2020-01-05] MEDS: FINASTERIDE (5 MG) 5 MG TABLET PO SCH (08:30)
[2020-01-05] MEDS: FAMOTIDINE (20 MG) 20 MG TABLET PO SCH ×2 (08:30→17:08)
[2020-01-05] MEDS: CLOTRIMAZOLE 1% 15 GM TUBE TP SCH ×2 (08:31→17:14)
[2020-01-05] MEDS: VENLAFAXINE XR 150 MG CAP.SR.24H PO SCH (08:31)
[2020-01-05] MEDS: CLOPIDOGREL BISULFATE 75 MG TABLET PO SCH (08:31)
[2020-01-05] MEDS: LEVETIRACETAM (250 MG) 250 MG TABLET PO SCH ×2 (08:31→17:08)
[2020-01-05] MEDS: METFORMIN 500 MG TABLET PO SCH ×2 (08:31→17:09)
--- NOTE | 2020-01-05 09:00 | NUR ---
RN NOTE- PT ALERT ORIENTED TO PERSON PLACE PURPOSE, INTERACTIVE INITIATES, CALM DIRECTABLE CURRENTLY DENIES SI HI [facility], STATES "I FEEL GOOD LATELY" MED COMPLIANT, PO INTAKE GOOD, CATHETER CARE DONE, WOUND CARE DONE
--- NOTE | 2020-01-05 13:51 | NUR ---
RN NOTE- DRESSING CHANGE RT OJEDA AREA. CLEANSED W NS, NO EXUDATE, NO SX OF INFECTION. MEPILEX APPLIED, TAPED SECURELY
[2020-01-05 16:00] VITALS: BP 123/65
[2020-01-05 19:58] VITALS: BP 115/60
[2020-01-05] MEDS: QUETIAPINE FUMARATE 100 MG TABLET PO SCH (21:25)
[2020-01-05] MEDS: ATORVASTATIN 40 MG TABLET PO SCH (21:25)
[2020-01-06] MEDS: PANTOPRAZOLE 40 MG TABLET.DR PO SCH (07:22)
[2020-01-06] MEDS: TAMSULOSIN 0.4 MG CAP.SR.24H PO SCH ×2 (08:43→16:50)
[2020-01-06] MEDS: CLOPIDOGREL BISULFATE 75 MG TABLET PO SCH (08:43)
[2020-01-06] MEDS: FINASTERIDE (5 MG) 5 MG TABLET PO SCH (08:43)
[2020-01-06] MEDS: LEVETIRACETAM (250 MG) 250 MG TABLET PO SCH ×2 (08:43→16:50)
[2020-01-06] MEDS: METFORMIN 500 MG TABLET PO SCH ×2 (08:43→16:50)
[2020-01-06] MEDS: FAMOTIDINE (20 MG) 20 MG TABLET PO SCH ×2 (08:43→16:50)
[2020-01-06] MEDS: CLOTRIMAZOLE 1% 15 GM TUBE TP SCH ×2 (08:45→17:24)
[2020-01-06] MEDS: VENLAFAXINE XR 150 MG CAP.SR.24H PO SCH (08:45)
--- NOTE | 2020-01-06 09:00 | NUR ---
RN NOTE- PT ALERT ORIENTED TO PERSON PLACE PURPOSE, INTERACTIVE INITIATES, CALM DIRECTABLE CURRENTLY DENIES SI HI [facility], STATES DRESSING CHANGE DONE
[2020-01-06 09:11] VITALS: BP 132/82
[2020-01-06 16:00] VITALS: BP 131/70
[2020-01-06 20:10] VITALS: BP 119/66
--- NOTE | 2020-01-06 20:20 | NUR ---
GPS RN NOTES: HEADACHE PT C/O OF 05/19 HEADACHE. PT REQUESTED TYLENOL. OFFERED TYLENOL 650 MG PO PRN ORDERED. PT AGREED AND TOLERATED MEDICATION WELL. CONTINUE TO MONITOR.
[2020-01-06] MEDS: QUETIAPINE FUMARATE 100 MG TABLET PO SCH (21:30)
[2020-01-06] MEDS: ATORVASTATIN 40 MG TABLET PO SCH (21:30)
--- NOTE | 2020-01-06 23:50 | NUR ---
GPS RN NOTES: UPON DOING ROUNDS PT AWAKE AND GETTING OUT OF BED. ENCOURAGE PT TO EXPRESS THOUGHTS AND FEELINGS. PT STATED, "IM GOING HOME TOMORROW? I DON'T BELIEVE YOU. SOILA GET UP AND FIND OUT." EDUCATED PT REGARDING SAFETY AND FALLS. PT STATED HE PREFERS TO SIT IN A CHAIR FOR NOW NOT IN BED AND CANT SLEEP. PLACE PT IN ISAAC CHAIR IN THE DAY ROOM WITH STAFF. OFFERED PT VISTARIL PRN FOR ANXIETY. PT REFUSED AND STATED HE IS NOT ANXIOUS. EXPLAIN RISKS AND BENEFITS. PT STILL REFUSED X3. NO SOB. NO RESP DISTRESS. BREATHING EVEN AND UNLABORED. NO PAIN AT THIS TIME. CONTINUE TO MONITOR
[2020-01-07 08:00] VITALS: BP 125/66
--- NOTE | 2020-01-07 08:31 | NUR ---
DISCHARGE NOTE: Patient will be discharged today back home [address] [id number] with his Marilyn ([phone]). Marilyn and patients friend, Pat ([phone]) will be providing transportation for the patient back home at 1PM. Patient is alert and oriented times aware and agreeable with discharge plan. Patient denies suicidal and homicidal ideation. Patient is alert and oriented times 3. Patient presents with euthymic mood and congruent affect. Patient is referred for outpatient psychiatric services with Dr. Elliot Quan Address: [address] [place] [address] ([phone]) and Crystal will be following up with the patient post discharge for intake evaluation. Patient will be following up with his primary care physician Dr. Kobi Aguilar Address: [address] [address] ([phone]) and has an appointment scheduled on 01/12/20 at 10:15AM.
[2020-01-07] MEDS: METFORMIN 500 MG TABLET PO SCH (09:32)
[2020-01-07] MEDS: FAMOTIDINE (20 MG) 20 MG TABLET PO SCH (09:32)
[2020-01-07] MEDS: VENLAFAXINE XR 150 MG CAP.SR.24H PO SCH (09:32)
[2020-01-07] MEDS: FINASTERIDE (5 MG) 5 MG TABLET PO SCH (09:32)
[2020-01-07] MEDS: CLOPIDOGREL BISULFATE 75 MG TABLET PO SCH (09:32)
[2020-01-07] MEDS: TAMSULOSIN 0.4 MG CAP.SR.24H PO SCH (09:32)
[2020-01-07] MEDS: PANTOPRAZOLE 40 MG TABLET.DR PO SCH (09:32)
[2020-01-07] MEDS: LEVETIRACETAM (250 MG) 250 MG TABLET PO SCH (09:32)
[2020-01-07] MEDS: CLOTRIMAZOLE 1% 15 GM TUBE TP SCH (09:33)
--- NOTE | 2020-01-07 13:30 | NUR ---
NURSING DISCHARGE NOTE: PATIENT DISCHARGED TODAY AT 1330 TO HIS HOUSE WITH HIS LOCATED [place] [address] [place], [address]. PATIENT LEFT THE UNIT VIA WHEELCHAIR ACCOMPANIED BY 1 STAFF TO PRIVATE VEHICLE AND PICKED UP BY HIS ANNE ([phone]) AND HIS FRIEND DALIA ([phone]). PATIENT IS IN STABLE CONDITION. VSS. NO ACUTE DISTRESS NOTED. NO COMPLAINTS. COMPLIANT WITH MEDICATION MANAGEMENT. COOPERATIVE WITH PLAN OF CARE. PSYCHIATRIC TREATMENT PLANS MET. MEDICAL TREATMENT PLANS DEFERRED FOR CONTINUAL MONITORING. DENIES SI/HI/AVH AT THE TIME OF DISCHARGE. PATIENT REFUSED PICTURES TO BE TAKEN. EDUCATED PATIENT ABOUT AFTERCARE WITH COPY PROVIDED. RETURNED PERSONAL BELONGINGS TO PATIENT. MEDICATIONS RECONCILED WITH ALONG WITH PSYCHIATRIC DISCHARGE ORDERS. DISCHARGE PAPERWORK SIGNED. FOR FOLLOW UP WITH PSYCHIATRIST AND BUSINESS RULES ANALYST WITHIN 1 WEEK.
== END 2020-01-07 13:30 | disposition home or self-care (01) | DRG 876 ==
LOC: GPS 12-21 00:56 → GPSOV 12-31 17:28 → GPS 12-31 23:09
PROVIDERS: ADMIT Psychiatry & Neurology Psychiatry; ATTEND Family Medicine
PROC: 0JBP0ZZ Excision of Left Lower Leg Subcutaneous Tissue and Fascia, Open Approach (ICD-10-PCS; principal; 2019-12-23)
DX: F33.3 Major depressive disorder, recurrent, severe with psychotic symptoms (principal); E11.65 Type 2 diabetes mellitus with hyperglycemia; F03.91 Unspecified dementia, unspecified severity, with behavioral disturbance; R45.851 Suicidal ideations; L97.929 Non-pressure chronic ulcer of unspecified part of left lower leg with unspecified severity; L97.418 Non-pressure chronic ulcer of right heel and midfoot with other specified severity; K21.9 Gastro-esophageal reflux disease without esophagitis; E78.5 Hyperlipidemia, unspecified; N40.0 Benign prostatic hyperplasia without lower urinary tract symptoms; F29 Unspecified psychosis not due to a substance or known physiological condition; E11.40 Type 2 diabetes mellitus with diabetic neuropathy, unspecified; E11.621 Type 2 diabetes mellitus with foot ulcer; Z73.6 Limitation of activities due to disability; T42.4X1D Poisoning by benzodiazepines, accidental (unintentional), subsequent encounter; Z79.899 Other long term (current) drug therapy; Z79.84 Long term (current) use of oral hypoglycemic drugs
CPT/HCPCS: 36415; 80048-TC; 80061-TC; 81000-TC; 82962-TC; 85025-TC; 87081-TC; 87086-TC; 97112-TC; 97116-TC; 97530-TC

== ENCOUNTER 2020-07-11 23:18 | Inpatient (IN) | payer BC, OTHER ==
[~2020-07-11] VITALS: Ht 172.7 cm; Wt 83.0 kg
[~2020-07-11 23:18] MED LIST changes: +ALPR0.255 PO; +ATOR40TA PO; +CLOP75TA15 PO; +DULO60CA45 PO; +FAMO20TA8 PO; +FINA5TAB11 PO; +LEVE500T20 PO; +METF-440 PO; +MIRT-121 PO; +OMEP20CA15 PO; +TAMS-12 PO; +VENL75CA62 PO
--- NOTE | 2020-07-12 01:00 | NUR ---
ADMISSION NOTES: ADMITTED AN 84YO/MALE FROM [facility] ON 5150 HOLD FOR DANGER TO SELF. PER HOLD PATIENT STATED HE WAS DISTRAUGHT BECAUSE HIS IS IN A COMA IN THE [facility]. HE PLANNED ON KILLING HIMSELF, HE WISHED HE HAD A GUN, AND HE HAS TOLD THE OFFICIALS THAT HE HAS HAD SUICIDAL THOUGHTS IN THE PAST. PATIENT WILL BE UNDER THE CARE OF DR. RIVERA AND CEDRIC WEBB NP FOR PSYCH AND MEDICAL DOCTORS RESPECTIVELY. UPON FACE TO FACE ASSESSMENT, PATIENT APPEARS ALERT AND ORIENTED X2-3, EPISODES OF CONFUSION NOTED, HE APPEARS UNKEMPT, DISHEVELED, WITH POOR HYGIENE, DELIBERATELY EXPRESSING HIS SADNESS OVER HIS 'S SITUATION THAT CAUSE HIM TO THINK OF SELF HARM TO END IT ALL. PATIENT THEN MADE AWARE OF HIS ADMISSION TO THIS LOCKED FACILITY ON LEGAL HOLD. REALITY ORIENTATION DONE. ORIENTATION TO UNIT, DOCTORS AND STAFF DONE. BELONGINGS AND CONTRABAND CHECKED. SKIN AND BODY ASSESSMENT DONE. PICTURES TAKEN AND PLACED IN THE CHART. WOUND CONSULT TRIGGERED FOR WOUNDS ON HIS RIGHT PLANTAR AREA. PATIENT HAS A SUPRAPUBIC CATHETER IN PLACE, WHEN ASKED THE REASON FOR IT, PATIENT WAS NOT ABLE TO STATE THE REASON WHY EXCEPT THAT HIS BLADDER IS NOT FUNCTIONING WELL. PATIENT APPEARS CALM UPON APPROACH. NO AGGRESSIVE BEHAVIOR NOTED. EPISODES OF FORGETFULNESS WAS NOTED DURING THIS ASSESSMENT. Q15 MIN CHECKS STARTED. CARE PLAN PATIENT SPECIFIC INITIATED. ENVIRONMENTAL SAFETY CHECK DONE. CEDRIC WEBB NP MADE AWARE OF THE MED RECON TO BE DONE. PROVIDED PATIENT WITH ADVISEMENT, GUIDE TO PRESCRIPTIONS MEDICATIONS AND PATIENT'S RIGHTS HANDBOOK. WILL MONITOR BEHAVIOR WHILE INPATIENT. WILL ENDORSE PATIENT'S CARE TO DAY SHIFT NURSE.
[2020-07-12 01:24] VITALS: BP 133/71
[2020-07-12] MEDS ORDERED: MAG HYDROX/AL HYDROX/SIMETH 30 ML UDC PO PRN (01:30)
[2020-07-12] MEDS ORDERED: BLOOD SUGAR DIAGNOSTIC 1 EACH STRIP IN ONE (01:30)
[2020-07-12] MEDS ORDERED: MAGNESIUM HYDROXIDE 30 ML UDC PO PRN (01:30)
[2020-07-12] MEDS ORDERED: PANT40TA2 PO (02:51)
[2020-07-12] MEDS ORDERED: METF-442 PO (02:51)
[2020-07-12] MEDS ORDERED: FINA5TAB3 PO (02:51)
[2020-07-12] MEDS ORDERED: CLOP75TA15 PO (02:51)
[2020-07-12] MEDS ORDERED: TAMS-12 PO (02:51)
[2020-07-12] MEDS ORDERED: DULO60CA45 PO (02:51)
[2020-07-12 07:09] LABS: CREATININE 1.2 mg/dL (0.6-1.3)
[2020-07-12] MEDS ORDERED: OMEPRAZOLE 20 MG CAPSULE.DR PO SCH (07:30)
[2020-07-12] MEDS: PANTOPRAZOLE 40 MG TABLET.DR PO SCH (07:57)
[2020-07-12] MEDS: METFORMIN 500 MG TABLET PO SCH ×2 (07:57→17:33)
[2020-07-12 08:00] VITALS: BP 126/63
[2020-07-12] MEDS: FINASTERIDE (5 MG) 5 MG TABLET PO SCH (08:50)
[2020-07-12] MEDS: TAMSULOSIN 0.4 MG CAP.SR.24H PO SCH ×2 (08:50→17:27)
[2020-07-12] MEDS: CLOPIDOGREL BISULFATE 75 MG TABLET PO SCH (08:50)
[2020-07-12] MEDS: CEPHALEXIN MONOHYDRATE 500 MG CAPSULE PO SCH ×2 (08:50→17:27)
[2020-07-12] MEDS: FAMOTIDINE (20 MG) 20 MG TABLET PO SCH ×2 (08:50→17:26)
[2020-07-12] MEDS: LEVETIRACETAM (250 MG) 250 MG TABLET PO SCH ×2 (08:53→17:26)
[2020-07-12] MEDS ORDERED: DEXTROSE 50%-WATER 50 ML DISP.SYRIN IV PRN (10:30)
--- NOTE | 2020-07-12 10:53 | NUR ---
WOUND CARE CONSULT: PT PRESENTS WITH ABDOMINAL/GROIN FOLD RASH, SUPRAPUBIC CATHETER AND WOUND TO RT PLANTAR FOOT AND CALLUSES TO LEFT FOOT, PRESENT ON ADMISSION. DR DELGADO NOTIFIED OF DPM CONSULT REQUEST. RECOMMENDATIONS MADE FOR SKIN PROTECTION. DISCUSSED WITH NURSING STAFF. MD IN AGREEMENT WITH PLAN OF CARE.
[2020-07-12] MEDS: Z GUARD REMEDY 2 OZ OINT TP SCH (11:29)
[2020-07-12] MEDS: INSULIN REGULAR, HUMAN 100 UNIT/ML 3 ML VIAL SQ PRN ×3 (11:49→21:53)
[2020-07-12] MEDS: BLOOD SUGAR DIAGNOSTIC 1 EACH STRIP IN SCH ×3 (11:54→21:48)
--- NOTE | 2020-07-12 13:59 | NUR ---
Industrial Roofer Contact: SW received a call from Felicia ([phone]), social service director at [facility], who stated that the pts is in their ICU and they need to provide the pt with an update if it is appropriately and would also need consent from him. SW stated that she spoke with the pt with her clinical supervisor this morning and he stated that he is aware that his is in a coma and that he does not have the ability to "consent to anything." The social service director stated that she will discuss it with the team and call the pt later today.
[2020-07-12 16:00] VITALS: BP 135/66
[2020-07-12] MEDS: hydrOXYzine PAMOATE 25 MG CAPSULE PO PRN (17:27)
[2020-07-12] MEDS: CLOTRIMAZOLE 1% 15 GM TUBE TP SCH (17:33)
[2020-07-12 20:00] VITALS: BP 134/67
[2020-07-12] MEDS: ATORVASTATIN 40 MG TABLET PO SCH (21:38)
[2020-07-12] MEDS: MIRTAZAPINE 15 MG TABLET PO SCH (21:38)
[2020-07-12] MEDS: ZOLPIDEM TARTRATE 5 MG TABLET PO PRN (22:50)
--- NOTE | 2020-07-12 22:50 | NUR ---
RN NOTES, PATIENT WITH INABILITY TO SLEEP, AND ASKING FOR SLEEPING PILL.
[2020-07-13] MEDS: hydrOXYzine PAMOATE 25 MG CAPSULE PO PRN (01:45)
--- NOTE | 2020-07-13 01:45 | NUR ---
RN NOTES, PATIENT WITH ANXIETY/RELENTLESSNESS AND INABILITY TO SLEEP, VISTARIL PRN ADMINISTERED.
[2020-07-13 06:00] VITALS: BP 134/67
[2020-07-13 06:20] LABS: BASOPHILS % (AUTO) 0.3 % (0.0-2.0); EOSINOPHILS % (AUTO) 1.6 % (0.0-6.0); HEMATOCRIT 43 % (39-51); HEMOGLOBIN 14.3 g/dL (13.5-17.5); LYMPHOCYTES # (AUTO) 1.2 /CMM (0.8-4.8); LYMPHOCYTES % (AUTO) 14.1 % (20.0-44.0); MEAN CORPUSCULAR HGB CONC 33 g/dl (31.0-36.0); MEAN CORPUSCULAR VOLUME 90 fL (80-96); MONOCYTES # (AUTO) 0.7 /CMM (0.1-1.30); MONOCYTES % (AUTO) 8.1 % (2.0-12.0); NEUTROPHILS # (AUTO) 6.6 /CMM (1.8-8.9); NEUTROPHILS % (AUTO) 75.9 % (43.0-81.0); PLATELET COUNT (AUTO) 313 /CMM (150-450); RED BLOOD CELL COUNT(AUTO) 4.84 MIL/uL (4.5-6.0); WHITE BLOOD COUNT (AUTO) 8.7 K/uL (4.3-11.0)
[2020-07-13 07:15] LABS: ALBUMIN 2.9 g/dL (3.4-5.0); BILIRUBIN,TOTAL 0.6 mg/dL (0.2-1.0); CALCIUM, SERUM 9.4 mg/dL (8.5-10.1); CREATININE 1.2 mg/dL (0.6-1.3); MAGNESIUM 2.3 mg/dL (1.8-2.4); PHOSPHORUS 3.8 mg/dL (2.5-4.9); POTASSIUM 4.4 mmol/L (3.5-5.1); TOTAL PROTEIN, SERUM 7.8 g/dL (6.4-8.2)
[2020-07-13 07:21] LABS: THYROID STIMULATING HORMONE 0.507 uIU/mL (0.358-3.74)
[2020-07-13] MEDS: BLOOD SUGAR DIAGNOSTIC 1 EACH STRIP IN SCH ×4 (07:36→21:10)
[2020-07-13] MEDS: INSULIN REGULAR, HUMAN 100 UNIT/ML 3 ML VIAL SQ PRN ×4 (07:44→21:49)
[2020-07-13 08:00] VITALS: BP 142/73
[2020-07-13] MEDS: METFORMIN 500 MG TABLET PO SCH ×2 (08:18→17:09)
[2020-07-13] MEDS: PANTOPRAZOLE 40 MG TABLET.DR PO SCH (08:18)
--- NOTE | 2020-07-13 08:46 | NUR ---
WOUND CARE FOLLOW UP: CHECKED SKIN AROUND SUPRAPUBIC CATH. SKIN IS PINK, NO ERYTHEMA, TENDERNESS OR DRAINAGE NOTED. PT FOLLOWED BY DPM FOR FEET. ALL SKIN PROTECTION MEASURES IN PLACE AND DISCUSSED WITH NURSING STAFF. WILL SEE PRN. BEAN IN AGREEMENT WITH PLAN OF CARE.
[2020-07-13] MEDS: LEVETIRACETAM (250 MG) 250 MG TABLET PO SCH ×2 (09:12→17:09)
[2020-07-13] MEDS: FAMOTIDINE (20 MG) 20 MG TABLET PO SCH ×2 (09:13→17:09)
[2020-07-13] MEDS: LITHIUM CARBONATE (300 MG CAP) 300 MG CAPSULE PO SCH ×3 (09:13→17:09)
[2020-07-13] MEDS: CLOPIDOGREL BISULFATE 75 MG TABLET PO SCH (09:13)
[2020-07-13] MEDS: CEPHALEXIN MONOHYDRATE 500 MG CAPSULE PO SCH ×2 (09:14→17:09)
[2020-07-13] MEDS: TAMSULOSIN 0.4 MG CAP.SR.24H PO SCH ×2 (09:14→17:09)
[2020-07-13] MEDS: FINASTERIDE (5 MG) 5 MG TABLET PO SCH (09:14)
[2020-07-13] MEDS: Z GUARD REMEDY 2 OZ OINT TP SCH (09:27)
[2020-07-13] MEDS: CLOTRIMAZOLE 1% 15 GM TUBE TP SCH ×2 (09:28→17:10)
--- NOTE | 2020-07-13 13:43 | NUR ---
UR Note: ROBBIN faxed a clinical to [facility] with attn to case management to the fax number: [phone]. Auth# [id number].
[2020-07-13 16:00] VITALS: BP 138/69
[2020-07-13 20:59] VITALS: BP 131/79
[2020-07-13] MEDS: MIRTAZAPINE 15 MG TABLET PO SCH (21:46)
[2020-07-13] MEDS: ATORVASTATIN 40 MG TABLET PO SCH (21:46)
[2020-07-14] MEDS: INSULIN REGULAR, HUMAN 100 UNIT/ML 3 ML VIAL SQ PRN ×3 (07:31→17:15)
[2020-07-14] MEDS: BLOOD SUGAR DIAGNOSTIC 1 EACH STRIP IN SCH ×4 (07:37→22:00)
[2020-07-14 08:00] VITALS: BP 158/73
[2020-07-14] MEDS: PANTOPRAZOLE 40 MG TABLET.DR PO SCH (08:06)
[2020-07-14] MEDS: METFORMIN 500 MG TABLET PO SCH ×2 (08:07→17:47)
[2020-07-14] MEDS: LEVETIRACETAM (250 MG) 250 MG TABLET PO SCH ×2 (08:28→17:47)
[2020-07-14] MEDS: CEPHALEXIN MONOHYDRATE 500 MG CAPSULE PO SCH ×2 (08:28→17:47)
[2020-07-14] MEDS: FINASTERIDE (5 MG) 5 MG TABLET PO SCH (08:28)
[2020-07-14] MEDS: LITHIUM CARBONATE (300 MG CAP) 300 MG CAPSULE PO SCH ×3 (08:28→17:47)
[2020-07-14] MEDS: CLOPIDOGREL BISULFATE 75 MG TABLET PO SCH (08:28)
[2020-07-14] MEDS: FAMOTIDINE (20 MG) 20 MG TABLET PO SCH ×2 (08:28→17:47)
[2020-07-14] MEDS: TAMSULOSIN 0.4 MG CAP.SR.24H PO SCH ×2 (08:51→17:47)
[2020-07-14] MEDS: Z GUARD REMEDY 2 OZ OINT TP PRN (09:25)
[2020-07-14] MEDS: Z GUARD REMEDY 2 OZ OINT TP SCH (09:29)
[2020-07-14] MEDS: CLOTRIMAZOLE 1% 15 GM TUBE TP SCH ×2 (09:29→17:47)
--- NOTE | 2020-07-14 10:16 | NUR ---
Point of Contact: SW called pts friend, Lizandro ([phone]), and left a voicemail stating that the SW would like to discuss the pts treatment.
--- NOTE | 2020-07-14 13:58 | NUR ---
Initial Discharge Plan: Pt currently resides at home located at [address] [place] [address]; ([phone]). Per pt, he would like to return to the home. SW will work with the pt and the MD regarding appropriate discharge plan. SW will form a safe and proper discharge.
--- NOTE | 2020-07-14 13:59 | NUR ---
Point of Contact: Pts friend, Lizandro ([phone]), called the SW and stated that he does not know if the pt can return to the home at this time due to the lack of care but if the discharge will be to home he will secure caregivers. He stated that he does not have control over the pts finances and therefore he does not know about Assisted Living but will talk to others involved with the pt.
[2020-07-14] MEDS: GLUCERNA SHAKE 237 ML CAN PO SCH ×2 (14:00→17:47)
[2020-07-14 15:28] LABS: BILIRUBIN,URINE NEGATIVE (NEGATIVE); COLOR,URINE YELLOW (YELLOW); LEUKOCYTE ESTERASE ,URINE MODERATE (NEGATIVE); NITRITE, URINE POSITIVE (NEGATIVE); PH,URINE 5.5 (5.0-8.0); PROTEIN,URINE TRACE mg/dl (NEGATIVE); UGLUCOSE 100 MG/DL mg/dL (NEGATIVE); UROBILINOGEN,URINE 0.2 EU/dL (0.2)
[2020-07-14 15:58] LABS: BACTERIA,URINE 2+ /HPF (None Seen); RBC,URINE 0-2 /HPF (0-2)
[2020-07-14 15:59] LABS: SQUAMOUS EPITHELIAL CELL,UR Few /HPF (None Seen)
[2020-07-14 16:00] VITALS: BP 150/79
--- NOTE | 2020-07-14 16:48 | NUR ---
RN NOTE: UA RESULTS PROVIDED TO DR. LOZADA. AWAITING NEW ORDERS.
--- NOTE | 2020-07-14 20:00 | NUR ---
GPS RN NOTES REFUSED HIS DUE PO MEDS PO LEVAQUIN,APPEARS UPSET.
--- NOTE | 2020-07-14 20:00 | NUR ---
GPS RN NOTES ON BED A/O X2-3,APPEARS AGITATED,REFUSED HIS PO LEVAQUIN,WILL OFFER IT AGAIN ONCE CALM.SITTER AT BEDSIDE.WILL CONTINUE TO MONITOR STATUS.
[2020-07-14] MEDS: LEVOFLOXACIN (250MG) 250 MG TABLET PO SCH (20:08)
[2020-07-14 20:31] VITALS: BP 143/80
[2020-07-14 22:00] VITALS: BP 143/80
[2020-07-14] MEDS: MIRTAZAPINE 15 MG TABLET PO SCH (22:00)
[2020-07-14] MEDS: ATORVASTATIN 40 MG TABLET PO SCH (22:00)
--- NOTE | 2020-07-14 22:00 | NUR ---
GPS RN NOTES BLOOD SUGAR CHECK REFUSED
[2020-07-15] MEDS: ACETAMINOPHEN 325 MG TABLET PO PRN ×2 (02:29→21:02)
--- NOTE | 2020-07-15 02:29 | NUR ---
GPS RN NOTES DUE LEVAQUIN ADMINISTER THIS TIME TOGETHER WITH TYLENOL.
--- NOTE | 2020-07-15 02:29 | NUR ---
GPS RN NOTES C/O HEADACHE,TYLENOL 650MG PO GIVEN [id number] FOR MILD PAIN
[2020-07-15] MEDS: ZOLPIDEM TARTRATE 5 MG TABLET PO PRN (02:32)
--- NOTE | 2020-07-15 02:32 | NUR ---
GPS RN NOTES C/O INSOMNIA,AMBIEN 5MG PO GIVEN ORDERED.WILL MONITOR HOUR OF SLEEP.
[2020-07-15] MEDS: PANTOPRAZOLE 40 MG TABLET.DR PO SCH (07:30)
[2020-07-15 08:00] VITALS: BP 152/69
[2020-07-15] MEDS: METFORMIN 500 MG TABLET PO SCH ×2 (08:00→18:31)
[2020-07-15] MEDS: GLUCERNA SHAKE 237 ML CAN PO SCH ×2 (08:00→16:30)
[2020-07-15] MEDS: BLOOD SUGAR DIAGNOSTIC 1 EACH STRIP IN SCH ×4 (08:07→21:33)
--- NOTE | 2020-07-15 08:30 | NUR ---
MS/RN NOTE PATIENT WAS SEEN SLEEPING IN HOSPITAL. PATIENT IS ABLE TO RESPONSE WITH MOANS, EYES HALF OPEN. PATIENT IS DROWSY, UNABLE TO GIVE PO MEDICATION. ELEVATED HEAD OF BED TO PREVENT ASPIRATION. WILL CONTINUE TO MONITOR.
[2020-07-15] MEDS: FAMOTIDINE (20 MG) 20 MG TABLET PO SCH ×2 (09:00→16:29)
[2020-07-15] MEDS: FINASTERIDE (5 MG) 5 MG TABLET PO SCH (09:00)
[2020-07-15] MEDS: LEVETIRACETAM (250 MG) 250 MG TABLET PO SCH ×2 (09:00→16:29)
[2020-07-15] MEDS: LITHIUM CARBONATE (300 MG CAP) 300 MG CAPSULE PO SCH ×3 (09:00→16:29)
[2020-07-15] MEDS: CLOPIDOGREL BISULFATE 75 MG TABLET PO SCH (09:00)
[2020-07-15] MEDS: TAMSULOSIN 0.4 MG CAP.SR.24H PO SCH ×2 (09:00→16:29)
[2020-07-15] MEDS: CLOTRIMAZOLE 1% 15 GM TUBE TP SCH ×2 (09:03→16:30)
[2020-07-15] MEDS: Z GUARD REMEDY 2 OZ OINT TP SCH (09:03)
--- NOTE | 2020-07-15 10:07 | NUR ---
UR Note: ROBBIN faxed a clinical to [facility] with attn to case management to the fax number: [phone]. Auth# [id number].
--- NOTE | 2020-07-15 13:30 | NUR ---
MS/RN NOTE PATIENT APPEARED TO BE LETHARGIC AND VERY LIMITED RESPONSE TO STIMULI, PATIENT NOT ABLE TO OPEN EYES AND CAN ONLY MOAN. NOTIFIED NEVILLE OF CHANGE OF LEVEL OF CONSCIOUSNESS. MD ORDERED CBC,CMP, MG, PHOS, CXR, AND CT OF HEAD STAT. ORDERS RECEIVED AND CARRIED OUT. WILL CONTINUE TO MONITOR AND ENSURE SAFETY.
[2020-07-15 15:09] LABS: RED BLOOD CELL COUNT(AUTO) 5.13 MIL/uL (4.5-6.0); WHITE BLOOD COUNT (AUTO) 14.1 K/uL (4.3-11.0)
[2020-07-15 15:10] LABS: BASOPHILS # (AUTO) 0.1 /CMM (0.0-0.2); BASOPHILS % (AUTO) 0.4 % (0.0-2.0); EOSINOPHILS % (AUTO) 2.6 % (0.0-6.0); HEMATOCRIT 46 % (39-51); LYMPHOCYTES # (AUTO) 1.5 /CMM (0.8-4.8); LYMPHOCYTES % (AUTO) 10.7 % (20.0-44.0); MEAN CORPUSCULAR HGB CONC 32 g/dl (31.0-36.0); MEAN CORPUSCULAR VOLUME 90 fL (80-96); MONOCYTES # (AUTO) 0.9 /CMM (0.1-1.30); MONOCYTES % (AUTO) 6.1 % (2.0-12.0); NEUTROPHILS # (AUTO) 11.3 /CMM (1.8-8.9); NEUTROPHILS % (AUTO) 80.2 % (43.0-81.0); PLATELET COUNT (AUTO) 357 /CMM (150-450)
[2020-07-15 16:00] VITALS: BP 156/72
--- NOTE | 2020-07-15 17:44 | NUR ---
MS/RN NOTE MD ORDERED TO HOLD LITHIUM.
--- NOTE | 2020-07-15 17:45 | NUR ---
MS/RN NOTE PATIENT APPEARS TO BE MORE AWAKE AND ALERT, ABLE TO RESPOND TO VERBAL COMMAND. NOTIFIED MD OF CURRENT LEVEL OF CONSCIOUSNESS. MD ORDERED TO GIVE MEDICATIONS IF PATIENT IS AWAKE AND ALERT ENOUGH. PATIENT IS ABLE TO VERBALIZE NEED FOR WATER AND DRINK WATER WITH NO SIGNS OF ASPIRATION NOTED.
[2020-07-15 18:11] LABS: ALANINE AMINOTRANSFERASE 27 U/L (12-78); ALBUMIN 2.8 g/dL (3.4-5.0); ALKALINE PHOSPHATASE 119 U/L (46-116); ASPARTATE AMINOTRANSFERASE 22 U/L (15-37); BILIRUBIN,TOTAL 0.7 mg/dL (0.2-1.0); CALCIUM, SERUM 9.6 mg/dL (8.5-10.1); CARBON DIOXIDE 26 mmol/L (21-32); CHLORIDE 99 mmol/L (98-107); CREATININE 1.4 mg/dL (0.6-1.3); GLUCOSE 287 mg/dL (74-106); MAGNESIUM 2.4 mg/dL (1.8-2.4); PHOSPHORUS 3.7 mg/dL (2.5-4.9); POTASSIUM 4.8 mmol/L (3.5-5.1); SODIUM SERUM 136 mmol/L (136-145); TOTAL PROTEIN, SERUM 7.9 g/dL (6.4-8.2); UREA NITROGEN, BLOOD 31 mg/dL (7-18)
--- NOTE | 2020-07-15 18:45 | NUR ---
MS/RN NOTE PATIENT IS A/O 2-3, AWAKE. PATIENT HAD VISITOR ITALIA GONZALEZ AND WAS ABLE TO HAVE A CONVERSATION WITH VISITOR. PATIENT DENIES ANY PAIN, NO ACUTE DISTRESS NOTED AT THIS TIME.
[2020-07-15] MEDS: LEVOFLOXACIN (250MG) 250 MG TABLET PO SCH (20:14)
[2020-07-15 20:20] VITALS: BP 158/82
[2020-07-15] MEDS: ATORVASTATIN 40 MG TABLET PO SCH (21:03)
[2020-07-15] MEDS: MIRTAZAPINE 15 MG TABLET PO SCH (21:39)
[2020-07-16] MEDS: ACETAMINOPHEN 325 MG TABLET PO PRN ×2 (04:37→12:32)
[2020-07-16] MEDS: BLOOD SUGAR DIAGNOSTIC 1 EACH STRIP IN SCH (07:58)
[2020-07-16 08:00] VITALS: BP 156/77
[2020-07-16] MEDS: METFORMIN 500 MG TABLET PO SCH ×2 (08:35→17:33)
[2020-07-16] MEDS: LITHIUM CARBONATE (300 MG CAP) 300 MG CAPSULE PO SCH ×3 (08:35→17:34)
[2020-07-16] MEDS: TAMSULOSIN 0.4 MG CAP.SR.24H PO SCH ×2 (08:35→17:34)
[2020-07-16] MEDS: PANTOPRAZOLE 40 MG TABLET.DR PO SCH (08:35)
[2020-07-16] MEDS: FINASTERIDE (5 MG) 5 MG TABLET PO SCH (08:35)
[2020-07-16] MEDS: FAMOTIDINE (20 MG) 20 MG TABLET PO SCH ×2 (08:35→17:33)
[2020-07-16] MEDS: LEVETIRACETAM (250 MG) 250 MG TABLET PO SCH ×2 (08:36→17:34)
[2020-07-16] MEDS: CLOPIDOGREL BISULFATE 75 MG TABLET PO SCH (08:36)
[2020-07-16] MEDS: GLUCERNA SHAKE 237 ML CAN PO SCH ×2 (08:36→17:34)
[2020-07-16] MEDS: CLOTRIMAZOLE 1% 15 GM TUBE TP SCH ×2 (08:46→17:34)
[2020-07-16] MEDS: Z GUARD REMEDY 2 OZ OINT TP SCH (08:46)
[2020-07-16] MEDS ORDERED: DEXTROSE 50%-WATER 50 ML DISP.SYRIN IV PRN (10:00)
[2020-07-16] MEDS ORDERED: IV NS 0.9% 500 ML IV ONE (10:30)
[2020-07-16] MEDS: BLOOD SUGAR DIAGNOSTIC 1 EACH STRIP VI SCH ×3 (12:00→21:14)
[2020-07-16 16:00] VITALS: BP 162/67
--- NOTE | 2020-07-16 20:00 | NUR ---
RN NOTES RECEIVED IN BED, ASLEEP, LETHARGIC, AROUSEABLE BY VOICE AND TACTILE STIMULATION, SUPRAPUBIC CATHETER DRAINING, RISK OF PULLING CATHETER, SITTER AT THE BEDSIDE.
[2020-07-16 20:06] VITALS: BP 155/72
[2020-07-16] MEDS: LEVOFLOXACIN (250MG) 250 MG TABLET PO SCH ×3 (20:36→21:46)
[2020-07-16 21:00] VITALS: BP 143/80
[2020-07-16] MEDS: ATORVASTATIN 40 MG TABLET PO SCH ×2 (21:13→21:45)
[2020-07-16] MEDS: MIRTAZAPINE 15 MG TABLET PO SCH (21:13)
[2020-07-16] MEDS: *INSULIN REGULAR(HUMULIN R)HUM 100 UNIT/ML VIAL SQ PRN (21:15)
--- NOTE | 2020-07-16 21:16 | NUR ---
RN NOTES BG 177 MG/DL, NO INSULIN GIVEN, PATIENT NOT EATING
[2020-07-17 06:44] LABS: BASOPHILS # (AUTO) 0.2 /CMM (0.0-0.2); EOSINOPHILS % (AUTO) 3.8 % (0.0-6.0); HEMATOCRIT 45 % (39-51); HEMOGLOBIN 14.4 g/dL (13.5-17.5); LYMPHOCYTES # (AUTO) 2.7 /CMM (0.8-4.8); LYMPHOCYTES % (AUTO) 17.4 % (20.0-44.0); MEAN CORPUSCULAR HGB CONC 32 g/dl (31.0-36.0); MEAN CORPUSCULAR VOLUME 91 fL (80-96); MONOCYTES # (AUTO) 0.8 /CMM (0.1-1.30); MONOCYTES % (AUTO) 4.8 % (2.0-12.0); NEUTROPHILS # (AUTO) 11.5 /CMM (1.8-8.9); PLATELET COUNT (AUTO) 277 /CMM (150-450); RED BLOOD CELL COUNT(AUTO) 4.91 MIL/uL (4.5-6.0); WHITE BLOOD COUNT (AUTO) 15.8 K/uL (4.3-11.0)
--- NOTE | 2020-07-17 06:44 | NUR ---
RN NOTES PATIENT VERY DEPRESSED, LETHARGIC, WOKE UP AROUND 2AM AND WAS UP ON CHAIR, WENT BACK TO BED, TALKING AND CALM, DRINKING AND EATING.
[2020-07-17] MEDS: hydrOXYzine PAMOATE 25 MG CAPSULE PO PRN ×2 (07:32→16:41)
[2020-07-17] MEDS: BLOOD SUGAR DIAGNOSTIC 1 EACH STRIP VI SCH ×4 (07:33→22:16)
[2020-07-17] MEDS: METFORMIN 500 MG TABLET PO SCH ×2 (07:33→17:54)
[2020-07-17] MEDS: PANTOPRAZOLE 40 MG TABLET.DR PO SCH (07:33)
--- NOTE | 2020-07-17 07:33 | NUR ---
GPS RN NOTE: PATIENT CRYING FEELING DEPRESSED AND ANXIOUS VISTARIL 25 MG PO PRN GIVEN PER ORDER WILL CONTINUE MONITORING FOR SAFETY AND BEHAVIOR Q 15 MIN
[2020-07-17 07:34] LABS: CALCIUM, SERUM 9.8 mg/dL (8.5-10.1); CARBON DIOXIDE 24 mmol/L (21-32); CHLORIDE 101 mmol/L (98-107); CREATININE 1.2 mg/dL (0.6-1.3); GLUCOSE 182 mg/dL (74-106); MAGNESIUM 2.7 mg/dL (1.8-2.4); PHOSPHORUS 3.3 mg/dL (2.5-4.9); POTASSIUM 4.8 mmol/L (3.5-5.1); SODIUM SERUM 134 mmol/L (136-145); UREA NITROGEN, BLOOD 29 mg/dL (7-18)
[2020-07-17 08:00] VITALS: BP 150/82
[2020-07-17] MEDS: INSULIN REGULAR, HUMAN 100 UNIT/ML 3 ML VIAL SQ PRN ×3 (08:08→17:26)
[2020-07-17] MEDS: GLUCERNA SHAKE 237 ML CAN PO SCH ×2 (08:09→17:03)
[2020-07-17] MEDS: TAMSULOSIN 0.4 MG CAP.SR.24H PO SCH ×2 (08:09→16:12)
[2020-07-17] MEDS: CLOPIDOGREL BISULFATE 75 MG TABLET PO SCH (08:09)
[2020-07-17] MEDS: LITHIUM CARBONATE (300 MG CAP) 300 MG CAPSULE PO SCH ×3 (08:09→16:11)
[2020-07-17] MEDS: FINASTERIDE (5 MG) 5 MG TABLET PO SCH (08:09)
[2020-07-17] MEDS: FAMOTIDINE (20 MG) 20 MG TABLET PO SCH ×2 (08:09→16:11)
[2020-07-17] MEDS: LEVETIRACETAM (250 MG) 250 MG TABLET PO SCH ×2 (08:09→16:11)
[2020-07-17] MEDS: Z GUARD REMEDY 2 OZ OINT TP SCH (08:13)
[2020-07-17] MEDS: CLOTRIMAZOLE 1% 15 GM TUBE TP SCH ×2 (08:46→16:15)
--- NOTE | 2020-07-17 12:19 | NUR ---
GPS RN NOTE: PATIENT WAS SEEN AND EXAMINE BY DARWIN. NOTIFIED PT LABS NO NEW ORDERS AT THIS TIME WILL CONTINUE MONITORING
--- NOTE | 2020-07-17 12:30 | NUR ---
GPS RN NOTE PATIENT BLOOD SUGAR 180 - PATIENT DID NOT WANT TO EAT LUNCH. HE TRIED TO EAT A COUPLE OF BITES OF A SANDWICH BUT DID NOT WANT ANYTHING ELSE. NOT ENOUGH FOOD EATEN FOR INSULIN TO BE GIVEN.
[2020-07-17 16:00] VITALS: BP 126/53
--- NOTE | 2020-07-17 17:26 | NUR ---
GPS RN NOTE BLOOD SUGAR 156 - PATIENT HAS NO APPETITE AND DOES NOT WANT TO EAT. DID NOT ADMINISTER INSULIN.
--- NOTE | 2020-07-17 19:48 | NUR ---
GPS RN NOTES RECEIVED PT AWAKE AND IN BED, NO S/S OR COMPLAINTS OF PAIN AT THIS TIME. PT IS DISPLAYING NO S/S OF APPARENT DISTRESS AT THIS TIME. PT BREATHING IS UNLABORED WITH EQUAL RISE AND FALL OF THE CHEST. PT IS ALERT AND ORIENTED X 2-3 ON ROOM AIR TOLERATING WELL. PT IS SAD, DEPRESSED CALM AND COOPERATIVE.. PT DENIES SUICIDAL IDEATION OR HOMICIDAL IDEATION AT THIS TIME. PT ASSISTED WITH TURNING AND REPOSITIONING FOR COMFORT AND CIRCULATION AT THIS TIME. PT NEEDS ALL MET AT THIS TIME. PT EDUCATED ON THE USE OF CALL BERNAL. PT BEDSIDE RAILS UP X2 FOR SAFETY BED IS LOCKED IN LOW. WILL CONTINUE TO MONITOR Q15 MIN WITH HE HELP OF NURSING STAFF TO MAINTAIN SAFETY.
[2020-07-17 20:00] VITALS: BP 145/63
[2020-07-17 20:25] VITALS: BP 145/63
[2020-07-17] MEDS: LEVOFLOXACIN (250MG) 250 MG TABLET PO SCH (21:16)
[2020-07-17] MEDS: ATORVASTATIN 40 MG TABLET PO SCH (21:45)
[2020-07-17] MEDS: MIRTAZAPINE 15 MG TABLET PO SCH (21:45)
--- NOTE | 2020-07-17 22:16 | NUR ---
GPS RN NOTES PT DID NOT HAVE DINNER NO INSULIN COVERAGE PROVIDED AT THIS TIME. WILL CONTINUE TO MONITOR.
--- NOTE | 2020-07-18 06:20 | NUR ---
GPS RN NOTES PT AWAKE AND IN BED, NO S/S OR COMPLAINTS OF PAIN AT THIS TIME. PT IS DISPLAYING NO S/S OF APPARENT DISTRESS AT THIS TIME. PT BREATHING IS UNLABORED WITH EQUAL RISE AND FALL OF THE CHEST. PT IS ALERT AND ORIENTED X 2-3 ON ROOM AIR TOLERATING WELL. PT IS SAD, DEPRESSED CALM AND COOPERATIVE.PT DENIES SUICIDAL IDEATION OR HOMICIDAL IDEATION AT THIS TIME. PT ASSISTED WITH TURNING AND REPOSITIONING FOR COMFORT AND CIRCULATION AT THIS TIME. PT NEEDS ALL MET AT THIS TIME. PT BEDSIDE RAILS UP X2 FOR SAFETY BED IS LOCKED IN LOW. PT MONITORED Q15 MIN WITH WITH THE HELP OF NURSING STAFF TO MAINTAIN SAFETY THROUGHOUT THE SHIFT PT ASSISTED WITH TURNING AND REPOSITIONING Q2HR AND PRN FOR COMFORT.ALL DUE MEDS GIVEN AND TOLERATED WELL WILL ENDORSE CARE TO DAY SHIFT NURSE.
[2020-07-18 08:00] VITALS: BP 130/59
[2020-07-18] MEDS: CLOTRIMAZOLE 1% 15 GM TUBE TP SCH ×2 (08:31→16:43)
[2020-07-18] MEDS: FAMOTIDINE (20 MG) 20 MG TABLET PO SCH ×2 (08:31→16:41)
[2020-07-18] MEDS: TAMSULOSIN 0.4 MG CAP.SR.24H PO SCH ×2 (08:32→16:41)
[2020-07-18] MEDS: FINASTERIDE (5 MG) 5 MG TABLET PO SCH (08:32)
[2020-07-18] MEDS: LITHIUM CARBONATE (300 MG CAP) 300 MG CAPSULE PO SCH ×3 (08:32→16:41)
[2020-07-18] MEDS: PANTOPRAZOLE 40 MG TABLET.DR PO SCH (08:32)
[2020-07-18] MEDS: BLOOD SUGAR DIAGNOSTIC 1 EACH STRIP VI SCH ×4 (08:32→21:16)
[2020-07-18] MEDS: LEVETIRACETAM (250 MG) 250 MG TABLET PO SCH ×2 (08:32→16:41)
[2020-07-18] MEDS: CLOPIDOGREL BISULFATE 75 MG TABLET PO SCH (08:32)
[2020-07-18] MEDS: METFORMIN 500 MG TABLET PO SCH ×2 (08:32→17:07)
[2020-07-18] MEDS: Z GUARD REMEDY 2 OZ OINT TP PRN (08:33)
[2020-07-18] MEDS: GLUCERNA SHAKE 237 ML CAN PO SCH ×2 (08:42→17:08)
[2020-07-18] MEDS: Z GUARD REMEDY 2 OZ OINT TP SCH (08:43)
[2020-07-18 15:59] VITALS: BP 152/71
[2020-07-18 20:00] VITALS: BP 156/63
[2020-07-18 20:55] VITALS: BP 156/65
[2020-07-18] MEDS: LEVOFLOXACIN (250MG) 250 MG TABLET PO SCH (20:58)
[2020-07-18] MEDS: MIRTAZAPINE 15 MG TABLET PO SCH (21:16)
[2020-07-18] MEDS: ATORVASTATIN 40 MG TABLET PO SCH (21:16)
[2020-07-18] MEDS: *INSULIN REGULAR(HUMULIN R)HUM 100 UNIT/ML VIAL SQ PRN (21:41)
[2020-07-19] MEDS: PANTOPRAZOLE 40 MG TABLET.DR PO SCH (07:30)
[2020-07-19] MEDS: BLOOD SUGAR DIAGNOSTIC 1 EACH STRIP VI SCH ×4 (07:34→21:37)
[2020-07-19 08:00] VITALS: BP 128/85
[2020-07-19] MEDS: GLUCERNA SHAKE 237 ML CAN PO SCH ×2 (08:00→17:00)
[2020-07-19] MEDS: METFORMIN 500 MG TABLET PO SCH ×2 (08:00→17:11)
[2020-07-19] MEDS: Z GUARD REMEDY 2 OZ OINT TP SCH (08:15)
[2020-07-19] MEDS: CLOTRIMAZOLE 1% 15 GM TUBE TP SCH ×2 (08:15→17:19)
[2020-07-19] MEDS: FINASTERIDE (5 MG) 5 MG TABLET PO SCH (08:30)
[2020-07-19] MEDS: CLOPIDOGREL BISULFATE 75 MG TABLET PO SCH (08:30)
[2020-07-19] MEDS: TAMSULOSIN 0.4 MG CAP.SR.24H PO SCH ×2 (08:31→17:00)
[2020-07-19] MEDS: LITHIUM CARBONATE (300 MG CAP) 300 MG CAPSULE PO SCH ×3 (08:31→17:00)
[2020-07-19] MEDS: FAMOTIDINE (20 MG) 20 MG TABLET PO SCH ×2 (08:31→17:00)
[2020-07-19] MEDS: LEVETIRACETAM (250 MG) 250 MG TABLET PO SCH ×2 (08:31→17:00)
--- NOTE | 2020-07-19 10:04 | NUR ---
Niece Contact: Pts niece, Aurora ([phone]), called the SW and stated that she was going to assist in looking for placement for the pt as the next of kin. SW provided her with the names of Assisted Living facilities that the SW has worked with and she thanked the SW for offering her a place to start. She then stated that the pt has a trustree, Oren Mackenzie ([phone]), and asked that the SW call him. SW stated that she will contact him to discuss the finances.
--- NOTE | 2020-07-19 10:05 | NUR ---
Trustee Contact: SW contacted the pts trustee, Oren Mackenzie ([phone]), and left a voicemail stating that the SW would like to speak to him regarding the pts care.
--- NOTE | 2020-07-19 10:57 | NUR ---
PATIENT REFUSING PO MEDICATION. TRIED PILLS WHOLE WITH APPLE SAUCE, SPIT IT OUT. CRUSHED PILLS AND PUT IN APPLE SAUCE, PATIENT STILL SPIT IT OUT.
[2020-07-19 11:28] LABS: BASOPHILS # (AUTO) 0.1 /CMM (0.0-0.2); BASOPHILS % (AUTO) 0.7 % (0.0-2.0); EOSINOPHILS % (AUTO) 3.5 % (0.0-6.0); HEMATOCRIT 44 % (39-51); HEMOGLOBIN 14.1 g/dL (13.5-17.5); LYMPHOCYTES # (AUTO) 1.9 /CMM (0.8-4.8); LYMPHOCYTES % (AUTO) 14.4 % (20.0-44.0); MEAN CORPUSCULAR HGB CONC 32 g/dl (31.0-36.0); MEAN CORPUSCULAR VOLUME 90 fL (80-96); MONOCYTES # (AUTO) 0.7 /CMM (0.1-1.30); MONOCYTES % (AUTO) 5.7 % (2.0-12.0); NEUTROPHILS # (AUTO) 9.7 /CMM (1.8-8.9); NEUTROPHILS % (AUTO) 75.7 % (43.0-81.0); PLATELET COUNT (AUTO) 378 /CMM (150-450); RED BLOOD CELL COUNT(AUTO) 4.86 MIL/uL (4.5-6.0); WHITE BLOOD COUNT (AUTO) 12.9 K/uL (4.3-11.0)
[2020-07-19] MEDS: INSULIN REGULAR, HUMAN 100 UNIT/ML 3 ML VIAL SQ PRN (11:40)
--- NOTE | 2020-07-19 11:59 | NUR ---
Point of Contact: Pts friend, Lizandro ([phone]), called the SW and stated that he wanted an update. SW informed him about the pts behaviors over the weekend and informed him about the conversation that the SW had with the pts niece. SW informed him that the family can come and visit and he stated that they wanted to come and inform the pt about the decline of his . Pt also discussed that she is working with the niece and trustee on securing placement for the pt.
--- NOTE | 2020-07-19 13:43 | NUR ---
Trustee Contact: Pts trustee, Oren Avril ([phone]), stated that he will fund the pts assisted living as he is unaware of the current financial situation of the pt.
[2020-07-19 20:00] VITALS: BP 151/60
[2020-07-19] MEDS: MIRTAZAPINE 15 MG TABLET PO SCH (21:09)
[2020-07-19] MEDS: ATORVASTATIN 40 MG TABLET PO SCH (21:09)
[2020-07-19] MEDS: *INSULIN REGULAR(HUMULIN R)HUM 100 UNIT/ML VIAL SQ PRN (21:39)
[2020-07-19] MEDS: ACETAMINOPHEN 325 MG TABLET PO PRN (22:21)
[2020-07-19] MEDS: hydrOXYzine PAMOATE 25 MG CAPSULE PO PRN (22:31)
--- NOTE | 2020-07-19 23:38 | NUR ---
GPS-RN NOTE: PATIENT HAD LOOSE BOWEL MOVEMENT X3. CHELSEA ESPITIA NOTIFIED OF THE FINDING ASSESSMENT. OBTAINED ORDER FOR STOOL C-DIFF NOTED AND CARRIED OUT. MANDATORY DOCUMENTATION FOR C-DIFF REQUISITION COMPLETED. WILL CONTINUE TO MONITOR. Addendum: 07/20/20 at 0710 by MERT WEBBER RN PATIENT IS ON CONTACT ISOLATION.
[2020-07-20 06:51] LABS: BASOPHILS # (AUTO) 0.1 /CMM (0.0-0.2); BASOPHILS % (AUTO) 0.4 % (0.0-2.0); EOSINOPHILS % (AUTO) 3.8 % (0.0-6.0); HEMATOCRIT 42 % (39-51); HEMOGLOBIN 13.9 g/dL (13.5-17.5); LYMPHOCYTES # (AUTO) 2.3 /CMM (0.8-4.8); LYMPHOCYTES % (AUTO) 15.8 % (20.0-44.0); MEAN CORPUSCULAR HGB CONC 33 g/dl (31.0-36.0); MEAN CORPUSCULAR VOLUME 89 fL (80-96); MONOCYTES # (AUTO) 1.1 /CMM (0.1-1.30); MONOCYTES % (AUTO) 7.3 % (2.0-12.0); NEUTROPHILS # (AUTO) 10.4 /CMM (1.8-8.9); NEUTROPHILS % (AUTO) 72.7 % (43.0-81.0); PLATELET COUNT (AUTO) 432 /CMM (150-450); RED BLOOD CELL COUNT(AUTO) 4.74 MIL/uL (4.5-6.0); WHITE BLOOD COUNT (AUTO) 14.4 K/uL (4.3-11.0)
[2020-07-20] MEDS: BLOOD SUGAR DIAGNOSTIC 1 EACH STRIP VI SCH ×4 (07:40→21:08)
[2020-07-20 07:45] LABS: CALCIUM, SERUM 9.5 mg/dL (8.5-10.1); CARBON DIOXIDE 27 mmol/L (21-32); CHLORIDE 103 mmol/L (98-107); CREATININE 1.4 mg/dL (0.6-1.3); GLUCOSE 137 mg/dL (74-106); MAGNESIUM 2.3 mg/dL (1.8-2.4); PHOSPHORUS 3.7 mg/dL (2.5-4.9); SODIUM SERUM 139 mmol/L (136-145); UREA NITROGEN, BLOOD 32 mg/dL (7-18)
[2020-07-20 08:00] VITALS: BP 154/59
[2020-07-20] MEDS: INSULIN REGULAR, HUMAN 100 UNIT/ML 3 ML VIAL SQ PRN ×3 (08:31→16:58)
[2020-07-20] MEDS: LITHIUM CARBONATE (300 MG CAP) 300 MG CAPSULE PO SCH ×3 (08:33→17:47)
[2020-07-20] MEDS: LEVETIRACETAM (250 MG) 250 MG TABLET PO SCH ×2 (08:33→17:48)
[2020-07-20] MEDS: FAMOTIDINE (20 MG) 20 MG TABLET PO SCH ×2 (08:33→17:48)
[2020-07-20] MEDS: METFORMIN 500 MG TABLET PO SCH ×2 (08:33→17:48)
[2020-07-20] MEDS: CLOPIDOGREL BISULFATE 75 MG TABLET PO SCH (08:33)
[2020-07-20] MEDS: TAMSULOSIN 0.4 MG CAP.SR.24H PO SCH ×2 (08:33→17:48)
[2020-07-20] MEDS: CLOTRIMAZOLE 1% 15 GM TUBE TP SCH ×3 (08:33→21:17)
[2020-07-20] MEDS: Z GUARD REMEDY 2 OZ OINT TP SCH (08:34)
[2020-07-20] MEDS: PANTOPRAZOLE 40 MG TABLET.DR PO SCH (08:36)
[2020-07-20] MEDS: GLUCERNA SHAKE 237 ML CAN PO SCH ×2 (08:36→17:48)
[2020-07-20] MEDS: FINASTERIDE (5 MG) 5 MG TABLET PO SCH (08:42)
[2020-07-20] MEDS: hydrOXYzine PAMOATE 25 MG CAPSULE PO PRN (12:11)
[2020-07-20] MEDS: ACETAMINOPHEN 325 MG TABLET PO PRN (12:11)
--- NOTE | 2020-07-20 12:11 | NUR ---
RN NOTE: PAIN AND ANXIETY PT C/O 3/0 BILATERAL LEG PAIN. PT ALSO SHAKING WITH ANXIETY. VERBALIZING FEELING ANXIOUS. MEDICATED WITH TYLENOL 650 PRN AND VISTARIL 25 MG PO PRN. WILL CONT TO MONITOR PT FOR SAFETY, BEHAVIOR AND EFFECTIVENESS OF PRN ADMINISTRATION
--- NOTE | 2020-07-20 12:30 | NUR ---
RN NOTE: DR. BOJORQUEZ NOTIFIED OF ELEVATED WBC COUNT AFTER FULL DOSE OF LEVAQUIN AND ISOLATION FOR C-DIFF.
[2020-07-20 16:00] VITALS: BP 145/68
[2020-07-20] MEDS: SULFAMETH/TRIMETH 800/160 MG 1 UDTAB TABLET PO SCH ×2 (16:02→21:18)
[2020-07-20 20:00] VITALS: BP 136/75
--- NOTE | 2020-07-20 20:00 | NUR ---
MALE FRIEND OF MR OLIVAREZ HERE TO VISIT. NOTED MR. OLIVAREZ SMILING AND ENJOYING THE VISIT. THE VISITOR STATED MR OLIVAREZ DEPRESSED AND HE HAS NOTED THAT HE IS HAVING TREMORS AND AT TIMES SHAKIE. MR OLIVAREZ IS SITTING IN A W/C IN HIS ROOM. PRIOR GOING TO SLEEP CLEANSED HIS ROIN AND DRIEND AND APPLIED LORIMIN CREAM. GROINF CLEARING
[2020-07-20] MEDS: *INSULIN REGULAR(HUMULIN R)HUM 100 UNIT/ML VIAL SQ PRN (21:15)
[2020-07-20] MEDS: MIRTAZAPINE 15 MG TABLET PO SCH (21:18)
[2020-07-20] MEDS: ATORVASTATIN 40 MG TABLET PO SCH (21:19)
[2020-07-21] MEDS: hydrOXYzine PAMOATE 25 MG CAPSULE PO PRN ×2 (01:38→14:18)
[2020-07-21] MEDS: ACETAMINOPHEN 325 MG TABLET PO PRN ×2 (03:10→14:18)
[2020-07-21 06:30] LABS: BASOPHILS # (AUTO) 0.1 /CMM (0.0-0.2); BASOPHILS % (AUTO) 0.4 % (0.0-2.0); EOSINOPHILS % (AUTO) 2.2 % (0.0-6.0); HEMATOCRIT 41 % (39-51); HEMOGLOBIN 13.6 g/dL (13.5-17.5); LYMPHOCYTES # (AUTO) 2.3 /CMM (0.8-4.8); LYMPHOCYTES % (AUTO) 15.3 % (20.0-44.0); MEAN CORPUSCULAR HGB CONC 33 g/dl (31.0-36.0); MEAN CORPUSCULAR VOLUME 89 fL (80-96); MONOCYTES % (AUTO) 6.8 % (2.0-12.0); NEUTROPHILS # (AUTO) 11.1 /CMM (1.8-8.9); NEUTROPHILS % (AUTO) 75.3 % (43.0-81.0); PLATELET COUNT (AUTO) 404 /CMM (150-450); WHITE BLOOD COUNT (AUTO) 14.7 K/uL (4.3-11.0)
[2020-07-21 06:49] LABS: CALCIUM, SERUM 9.3 mg/dL (8.5-10.1); CARBON DIOXIDE 22 mmol/L (21-32); CHLORIDE 102 mmol/L (98-107); CREATININE 1.7 mg/dL (0.6-1.3); GLUCOSE 108 mg/dL (74-106); POTASSIUM 3.9 mmol/L (3.5-5.1); SODIUM SERUM 134 mmol/L (136-145); UREA NITROGEN, BLOOD 36 mg/dL (7-18)
[2020-07-21] MEDS: BLOOD SUGAR DIAGNOSTIC 1 EACH STRIP VI SCH ×4 (07:39→21:19)
[2020-07-21 08:00] VITALS: BP 150/74
[2020-07-21] MEDS: METFORMIN 500 MG TABLET PO SCH ×2 (08:17→17:42)
[2020-07-21] MEDS: PANTOPRAZOLE 40 MG TABLET.DR PO SCH (08:17)
[2020-07-21] MEDS: GLUCERNA SHAKE 237 ML CAN PO SCH ×2 (08:19→17:43)
[2020-07-21] MEDS: TAMSULOSIN 0.4 MG CAP.SR.24H PO SCH ×2 (09:46→17:43)
[2020-07-21] MEDS: SULFAMETH/TRIMETH 800/160 MG 1 UDTAB TABLET PO SCH ×2 (09:46→21:12)
[2020-07-21] MEDS: FAMOTIDINE (20 MG) 20 MG TABLET PO SCH ×2 (09:46→17:43)
[2020-07-21] MEDS: FINASTERIDE (5 MG) 5 MG TABLET PO SCH (09:46)
[2020-07-21] MEDS: LITHIUM CARBONATE (300 MG CAP) 300 MG CAPSULE PO SCH ×3 (09:47→17:43)
[2020-07-21] MEDS: CLOPIDOGREL BISULFATE 75 MG TABLET PO SCH (09:47)
[2020-07-21] MEDS: LEVETIRACETAM (250 MG) 250 MG TABLET PO SCH ×2 (09:47→17:43)
[2020-07-21] MEDS: Z GUARD REMEDY 2 OZ OINT TP SCH (09:47)
[2020-07-21] MEDS: INSULIN REGULAR, HUMAN 100 UNIT/ML 3 ML VIAL SQ PRN ×2 (12:35→17:02)
--- NOTE | 2020-07-21 13:05 | NUR ---
Niece Contact: Pts niece, Aurora ([phone]), called the SW and informed her that the pts . She stated she will come to the hospital with two other friends and they are going to provide him with the news the following day as to avoid doing it on the pts birthday. SW stated that she will make sure to speak with security to allow them to come to the unit and provide that information to the pt.
[2020-07-21] MEDS ORDERED: hydrOXYzine HCL INJ 25 MG/ML VIAL IM STA (13:54)
--- NOTE | 2020-07-21 14:18 | NUR ---
RN NOTE: ANXIETY AND PAIN PT SHAKING UNCONTROLLABLY, ANXIOUS. ALSO C/O 05/19 PAIN. MEDICATED WITH VISTARIL 25MG PO PRN AND TYLENOL 650 MG PO PRN
--- NOTE | 2020-07-21 14:35 | NUR ---
Assisted Living Referral: ROBBIN faxed a referral to [facility] with attn to Migue to the fax number: [phone].
--- NOTE | 2020-07-21 14:35 | NUR ---
Assisted Living Referral: ROBBIN faxed a referral to [facility] with attn to Alissa to the fax number: [phone].
[2020-07-21 16:00] VITALS: BP 151/57
[2020-07-21] MEDS: CLOTRIMAZOLE 1% 15 GM TUBE TP SCH (17:44)
[2020-07-21 17:45] LABS: BILIRUBIN,URINE NEGATIVE (NEGATIVE); COLOR,URINE YELLOW (YELLOW); LEUKOCYTE ESTERASE ,URINE SMALL (NEGATIVE); NITRITE, URINE NEGATIVE (NEGATIVE); PH,URINE 5.5 (5.0-8.0); PROTEIN,URINE NEGATIVE (NEGATIVE); UGLUCOSE NEGATIVE (NEGATIVE); UROBILINOGEN,URINE 0.2 EU/dL (0.2)
[2020-07-21 17:49] LABS: CREATININE, URINE 136.5 MG/DL (30.0-125.0); URINE TOTAL PROTEIN 34.5 mg/dL (0-11.9)
[2020-07-21 18:06] LABS: BACTERIA,URINE 2+ /HPF (None Seen); RBC,URINE 0-2 /HPF (0-2); SQUAMOUS EPITHELIAL CELL,UR Few /HPF (None Seen)
[2020-07-21 18:15] LABS: EOSINOPHIL,URINE None Seen
--- NOTE | 2020-07-21 18:52 | NUR ---
RN NOTE: DR. VEE NOTIFIED OF UPDATED UA RESULTS
[2020-07-21] MEDS: ATORVASTATIN 40 MG TABLET PO SCH (21:11)
[2020-07-21] MEDS: MIRTAZAPINE 15 MG TABLET PO SCH (21:12)
[2020-07-21 21:15] VITALS: BP 127/62
[2020-07-22] MEDS: hydrOXYzine PAMOATE 25 MG CAPSULE PO PRN ×3 (00:59→23:55)
[2020-07-22 06:22] LABS: BASOPHILS # (AUTO) 0.1 /CMM (0.0-0.2); BASOPHILS % (AUTO) 0.4 % (0.0-2.0); EOSINOPHILS % (AUTO) 2.9 % (0.0-6.0); HEMATOCRIT 41 % (39-51); HEMOGLOBIN 13.6 g/dL (13.5-17.5); LYMPHOCYTES # (AUTO) 1.7 /CMM (0.8-4.8); MEAN CORPUSCULAR HGB CONC 33 g/dl (31.0-36.0); MEAN CORPUSCULAR VOLUME 90 fL (80-96); MONOCYTES % (AUTO) 7.3 % (2.0-12.0); NEUTROPHILS # (AUTO) 10.1 /CMM (1.8-8.9); NEUTROPHILS % (AUTO) 76.4 % (43.0-81.0); PLATELET COUNT (AUTO) 381 /CMM (150-450); RED BLOOD CELL COUNT(AUTO) 4.61 MIL/uL (4.5-6.0); WHITE BLOOD COUNT (AUTO) 13.3 K/uL (4.3-11.0)
[2020-07-22 07:44] LABS: CALCIUM, SERUM 9.4 mg/dL (8.5-10.1); CARBON DIOXIDE 22 mmol/L (21-32); CHLORIDE 102 mmol/L (98-107); CREATININE 1.6 mg/dL (0.6-1.3); GLUCOSE 95 mg/dL (74-106); MAGNESIUM 2.4 mg/dL (1.8-2.4); PHOSPHORUS 3.4 mg/dL (2.5-4.9); POTASSIUM 4.1 mmol/L (3.5-5.1); SODIUM SERUM 132 mmol/L (136-145); UREA NITROGEN, BLOOD 32 mg/dL (7-18)
[2020-07-22 08:00] VITALS: BP 109/77
[2020-07-22] MEDS: BLOOD SUGAR DIAGNOSTIC 1 EACH STRIP VI SCH ×4 (08:06→21:33)
[2020-07-22] MEDS: PANTOPRAZOLE 40 MG TABLET.DR PO SCH (08:06)
[2020-07-22] MEDS: METFORMIN 500 MG TABLET PO SCH ×2 (08:41→17:03)
[2020-07-22] MEDS: FAMOTIDINE (20 MG) 20 MG TABLET PO SCH ×2 (08:42→17:03)
[2020-07-22] MEDS: LITHIUM CARBONATE (300 MG CAP) 300 MG CAPSULE PO SCH ×3 (08:42→17:03)
[2020-07-22] MEDS: GLUCERNA SHAKE 237 ML CAN PO SCH ×2 (08:42→17:04)
[2020-07-22] MEDS: TAMSULOSIN 0.4 MG CAP.SR.24H PO SCH ×2 (08:42→17:03)
[2020-07-22] MEDS: FINASTERIDE (5 MG) 5 MG TABLET PO SCH (08:42)
[2020-07-22] MEDS: CLOPIDOGREL BISULFATE 75 MG TABLET PO SCH (08:42)
[2020-07-22] MEDS: LEVETIRACETAM (250 MG) 250 MG TABLET PO SCH ×2 (08:42→17:03)
[2020-07-22] MEDS: SULFAMETH/TRIMETH 800/160 MG 1 UDTAB TABLET PO SCH ×2 (08:42→21:30)
[2020-07-22] MEDS: Z GUARD REMEDY 2 OZ OINT TP SCH (08:44)
[2020-07-22] MEDS: CLOTRIMAZOLE 1% 15 GM TUBE TP SCH ×2 (08:44→17:04)
--- NOTE | 2020-07-22 11:13 | NUR ---
UR Note: ROBBIN faxed clinicals to pts insurance company, [employer] (Attn: Case Management) to the fax number, . Addendum: 07/22/20 at 1123 by ARTEMIO SIEGEL Kenny # [id number]
--- NOTE | 2020-07-22 11:24 | NUR ---
Assisted Living Contact: SW contacted [facility] ([address], [place] [address], ) to inquire if the pt has been accepted to the facility. SW was unable to reach anyone and left a voicemail.
--- NOTE | 2020-07-22 11:27 | NUR ---
Assisted Living Contact: ROBBIN contacted [facility], ([address] [place] [address]) to inquire if the pt has been accepted to the facility. ROBBIN spoke to Felisa delarosa who stated that the director of casino marketing and RNs are in a meeting at this time. Felisa took down ROBBIN's contact information and stated that someone will contact ROBBIN after the meeting.
[2020-07-22 16:00] VITALS: BP 132/59
--- NOTE | 2020-07-22 19:45 | NUR ---
NURSE NOTES: PATIENT HAS PRN VISTARIL MEDICATION, PULLED OUT TWICE ON THE OMNICELL THE FIRST ONE GOT CONTAMINATED WHEN IT FELL ON THE FLOOR. SO DEHORNER PULLED OUT A SECOND PILL.
[2020-07-22] MEDS: MIRTAZAPINE 15 MG TABLET PO SCH (21:30)
[2020-07-22] MEDS: ATORVASTATIN 40 MG TABLET PO SCH (21:30)
--- NOTE | 2020-07-22 22:30 | NUR ---
NURSES NOTES: DR. RIVERA DID HIS ROUNDS IN THE UNIT AND SAW THIS PATIENT. KRISTINA TOLD HIM OF THE PATIENT'S STATUS AT THIS TIME- TEARFUL, ANXIOUS, CRYING EPISODES, PATIENT NOT ABLE TO TELL WHAT HE REALLY NEEDS. DR. RIVERA NOTED OF THIS BEHAVIOR AND STATED TO INCREASE HIS REMERON AND START PATIENT IN BUSPAR IN THE MORNING. WILL CONTINUE TO MONITOR PATIENT.
[2020-07-23] MEDS: BLOOD SUGAR DIAGNOSTIC 1 EACH STRIP VI SCH ×4 (07:30→21:46)
--- NOTE | 2020-07-23 07:56 | NUR ---
RN NOTE PATIENT REFUSED BLOOD SUGAR CHECK MULTIPLE TIMES. WHEN URGED, PATIENT BECAME COMBATIVE AND ANGRY. PATIENT EDUCATED ON RISKS AND BENEFITS OF DOING REFUSING BLOOD SUGAR CHECKS. WILL CONTINUE TO MONITOR.
[2020-07-23] MEDS: GLUCERNA SHAKE 237 ML CAN PO SCH ×2 (08:00→17:43)
--- NOTE | 2020-07-23 08:00 | NUR ---
RN OPENING NOTE PATIENT AWAKE IN BED, EASILY AROUSABLE. A/OX1,DEPRESSED MOOD NOTED. NO S/SX OF ACUTE RESPIRATORY DISTRESS NOTED. PATIENT REMAINS CONFUSED AND DISORGANIZED. DISHEVELED APPEARANCE NOTED. PATIENT COMPLIANT WITH MED REGIMEN. PT ON 1:1 SITTER FOR SAFETY AND MONITORING. SAFETY PRECAUTIONS IN PLACE. WILL CONTINUE TO MONITOR Q15MIN ROUNDS FOR SAFETY AND BEHAVIOR.
[2020-07-23 08:06] LABS: COMPLEMENT C3, SERUM 151 mg/dL (82-167); COMPLEMENT C4, SERUM 38 mg/dL (12-38)
[2020-07-23] MEDS: LITHIUM CARBONATE (300 MG CAP) 300 MG CAPSULE PO SCH ×3 (09:00→16:28)
[2020-07-23 09:07] LABS: *ANA ANTI-CENTROMERE B AB <0.2 AI (0.0-0.9); *ANA ANTI-DNA(DS) AB, QN 2 IU/mL (0-9); *ANA ANTI-JO-1 <0.2 AI (0.0-0.9); *ANA ANTICHROMATIN ANTIBODY <0.2 AI (0.0-0.9); *ANA RNP ANTIBODIES <0.2 AI (0.0-0.9); *ANA SJOGREN'S ANTI-SS-A <0.2 AI (0.0-0.9); *ANA SJOGREN'S ANTI-SS-B <0.2 AI (0.0-0.9); *ANAANTI-SCLERODERMA-70 AB <0.2 AI (0.0-0.9); *ANASMITH AB <0.2 AI (0.0-0.9)
[2020-07-23] MEDS: METFORMIN 500 MG TABLET PO SCH ×2 (09:14→17:30)
[2020-07-23] MEDS: PANTOPRAZOLE 40 MG TABLET.DR PO SCH (09:14)
[2020-07-23] MEDS: TAMSULOSIN 0.4 MG CAP.SR.24H PO SCH ×2 (09:15→17:29)
[2020-07-23] MEDS: FAMOTIDINE (20 MG) 20 MG TABLET PO SCH ×2 (09:15→17:43)
[2020-07-23] MEDS: SULFAMETH/TRIMETH 800/160 MG 1 UDTAB TABLET PO SCH ×2 (09:15→21:24)
[2020-07-23] MEDS: FINASTERIDE (5 MG) 5 MG TABLET PO SCH (09:15)
[2020-07-23] MEDS: LEVETIRACETAM (250 MG) 250 MG TABLET PO SCH ×2 (09:15→17:30)
[2020-07-23] MEDS: CLOPIDOGREL BISULFATE 75 MG TABLET PO SCH (09:15)
[2020-07-23] MEDS: Z GUARD REMEDY 2 OZ OINT TP SCH (09:16)
[2020-07-23] MEDS: CLOTRIMAZOLE 1% 15 GM TUBE TP SCH ×2 (09:16→16:28)
--- NOTE | 2020-07-23 09:35 | NUR ---
Assisted Living Contact: SW contacted [facility] ([phone]/cell: [phone]) and spoke to Migue, admissions representative, about the pts referral. He stated that he needed to speak to someone about the pt and he needed the SW to fill out a Physicians report. He then stated that an assessment would have to be conducted as well for the pt. SW stated that the process needs to be started for this pt.
--- NOTE | 2020-07-23 09:58 | NUR ---
Trustee Contact: SW contacted the pts trustee, Oren Maceknzie ([phone]), and left a voicemail stating that the SW has been in contact with [facility] and they would like to speak to him regarding the pt. SW asked him to give Migue ([phone]) from the facility a call. SW will follow up.
[2020-07-23] MEDS: INSULIN REGULAR, HUMAN 100 UNIT/ML 3 ML VIAL SQ PRN (11:43)
--- NOTE | 2020-07-23 12:23 | NUR ---
Trustee Contact: Pts trustee, Oren Mackenzie ([phone]), contacted the SW and stated that before he speaks to the facility that is in the process of accepting the pt he wanted to make sure that the pt can be placed at an Assisted Living legally considering that the pt owns his own estate and does not have a DPOA or conservator. SW stated that the same situation has presented itself in the hospital and pts are placed at the assisted living if home is not a safe discharge plan. Pts trustee stated that he spoke to his state's attorney who stated that a declaration of capacity is needed to legally place the pt. SW stated that she will have her kosher dietary service supervisor consult with him but from her knowledge the pt is already considered gravely disabled and therefore can be placed. SW will follow up.
--- NOTE | 2020-07-23 12:40 | NUR ---
Assisted Living Contact: SW contacted [facility] ([phone]/cell: [phone]) and spoke to Migue, dean of admissions, who stated that the pt cannot be accepted due to the catheter. He stated that the pt will need to be in a more acute setting.
--- NOTE | 2020-07-23 13:28 | NUR ---
Trustee Contact: SW contacted the pts trustee, Oren Mackenzie ([phone]), and informed him that the pt was not accepted to [facility] and stated that he needs a higher level of care. SW stated that the pt can be discharged home with 24/7 caregiving or the pt can be placed in a SNF. SW stated that the problem with placing the pt in a SNF will be getting the insurance company to cover the costs. Pts trustee stated that he will think the options through and the SW provided him with a list of caregiving resources.
[2020-07-23] MEDS: hydrOXYzine PAMOATE 25 MG CAPSULE PO PRN ×2 (13:50→17:30)
--- NOTE | 2020-07-23 18:47 | NUR ---
RN CLOSING NOTE PATIENT AWAKE IN BED, EASILY AROUSABLE. A/OX1,DEPRESSED MOOD NOTED. EASILY AGITATED AND TREMORS PRESENT. NO S/SX OF ACUTE RESPIRATORY DISTRESS NOTED. PATIENT REMAINS CONFUSED AND DISORGANIZED. DISHEVELED APPEARANCE NOTED. PATIENT NONCOMPLIANT WITH MED REGIMEN. PT ON 1:1 SITTER FOR SAFETY AND MONITORING. SAFETY PRECAUTIONS IN PLACE. WILL CONTINUE TO MONITOR Q15MIN ROUNDS FOR SAFETY AND BEHAVIOR.
[2020-07-23] MEDS: busPIRone 5 MG TABLET PO SCH ×2 (18:56→19:00)
--- NOTE | 2020-07-23 19:00 | NUR ---
RN NOTE PATIENT SPIT OUT BUSPAR MED. MED UNABLE TO BE FOUND ON FLOOR.
[2020-07-23 20:23] VITALS: BP 155/56
[2020-07-23 20:25] VITALS: BP 155/56
[2020-07-23] MEDS: ATORVASTATIN 40 MG TABLET PO SCH (21:24)
[2020-07-23] MEDS: MIRTAZAPINE 15 MG TABLET PO SCH (21:46)
--- NOTE | 2020-07-23 22:07 | NUR ---
RN NOTE PATIENT'S BLOOD SUGAR LEVEL IS 109 MG/DL, NO SSI COVERAGE NEEDED AT THIS TIME. ENCOURAGED PO FLUIDS & JUICE & WATER IS BEING OFFERED INTERMITTENTLY. ON 1:1 SUPERVISION. WILL CONTINUE TO MONITOR FOR ANY CHANGE OF CONDITION.
--- NOTE | 2020-07-23 22:58 | NUR ---
RN NOTE: LIQUID LOADER NOTIFIED CHARGE NURSE NOTIFIED MINO LOZADA ABOUT PATIENT'S LABS RESULTED ON 07/22/20 WBC 13.3, BUN 32, SODIUM 312, CREATININE 1.6. MINO ORDERED TO GIVE NS 0.9% 500 ML BOLUS ONCE & REPEAT LABS IN AM. ORDERS NOTED & CARRIED OUT. WILL CONTINUE TO MONITOR THE PATIENT CLOSELY FOR ANY CHANGES.
--- NOTE | 2020-07-23 23:00 | NUR ---
RN NOTE: INSERTED IV CATHETER G 24 TO LEFT FOREARM WITH GOOD BLOOD FLOW RETURN, NO INFILTRATION OR REDNESS AT THIS TIME. WILL CONTINUE TO MONITOR.
[2020-07-23] MEDS ORDERED: IV NS 0.9% 500 ML IV ONE (23:30)
[2020-07-23] MEDS: Z GUARD REMEDY 2 OZ OINT TP PRN (23:38)
[2020-07-24] MEDS: hydrOXYzine PAMOATE 25 MG CAPSULE PO PRN ×3 (00:06→20:12)
--- NOTE | 2020-07-24 00:07 | NUR ---
RN NOTE: ANXIETY PATIENT IS VERY RESTLESS, ANXIOUS, PRN VISTARIL 25 MG PO ADMINISTERED. WILL CONTINUE TO MONITOR.
--- NOTE | 2020-07-24 01:05 | NUR ---
RN NOTE PATIENT'S IV CATHETER SITE LEFT FOREARM NOTED TO BE SLIGHTLY INFILTRATED. IV CATH REMOVED, PRESSURE DRESSING APPLIED. NO BLEEDING NOTED. PATIENT DOES NOT HAVE ANY IV CATH IN PLACE ANYMORE. WILL MONITOR CLOSELY.
--- NOTE | 2020-07-24 02:45 | NUR ---
RN NOTE PATIENT IS SLEEPING AT THIS TIME, CLAM & RELAXED.
--- NOTE | 2020-07-24 06:51 | NUR ---
RN NOTE ELECTRICIAN THIRD ALMA BLOOD FOR AM LABS. WILL ENDORSE TO AM RN TO FOLLOW UP LAB RESULTS.
--- NOTE | 2020-07-24 06:52 | NUR ---
RN NOTE PATIENT'S URINARY OUTPUT IS 600 ML, PO INTAKE 300 ML & IVF INTAKE 500 ML.
--- NOTE | 2020-07-24 06:53 | NUR ---
RN NOTE PATIENT SLEPT 4 HOURS AT NIGHT, RESTLESS & ANXIOUS INTERMITTENTLY, PRN VISTARIL WAS ADMINISTERED ORDERED AT 0006. KEPT PATIENT CLEAN & DRY. SUPRAPUBIC CATHETER IN PLACE, PATENT, DRAINING YELLOW COLOR URINE. NO IV ACCESS AT THIS TIME. WILL ENDORSE TO AM RN FOR CONTINUITY OF CARE.
[2020-07-24 07:12] LABS: BASOPHILS # (AUTO) 0.1 /CMM (0.0-0.2); BASOPHILS % (AUTO) 0.5 % (0.0-2.0); EOSINOPHILS % (AUTO) 2.6 % (0.0-6.0); HEMATOCRIT 38 % (39-51); HEMOGLOBIN 12.4 g/dL (13.5-17.5); LYMPHOCYTES # (AUTO) 1.9 /CMM (0.8-4.8); LYMPHOCYTES % (AUTO) 12.3 % (20.0-44.0); MEAN CORPUSCULAR HGB CONC 32 g/dl (31.0-36.0); MEAN CORPUSCULAR VOLUME 90 fL (80-96); MONOCYTES # (AUTO) 1.2 /CMM (0.1-1.30); MONOCYTES % (AUTO) 7.7 % (2.0-12.0); NEUTROPHILS # (AUTO) 11.6 /CMM (1.8-8.9); NEUTROPHILS % (AUTO) 76.9 % (43.0-81.0); PLATELET COUNT (AUTO) 407 /CMM (150-450); RED BLOOD CELL COUNT(AUTO) 4.29 MIL/uL (4.5-6.0); WHITE BLOOD COUNT (AUTO) 15.1 K/uL (4.3-11.0)
[2020-07-24 08:00] VITALS: BP 156/73
[2020-07-24] MEDS: METFORMIN 500 MG TABLET PO SCH ×2 (08:00→16:14)
[2020-07-24] MEDS: TAMSULOSIN 0.4 MG CAP.SR.24H PO SCH ×2 (09:00→16:41)
[2020-07-24] MEDS: FINASTERIDE (5 MG) 5 MG TABLET PO SCH (09:00)
[2020-07-24] MEDS: BLOOD SUGAR DIAGNOSTIC 1 EACH STRIP VI SCH ×4 (09:15→22:07)
[2020-07-24] MEDS: GLUCERNA SHAKE 237 ML CAN PO SCH ×2 (09:17→16:13)
[2020-07-24] MEDS: busPIRone 5 MG TABLET PO SCH ×2 (09:41→16:41)
[2020-07-24] MEDS: FAMOTIDINE (20 MG) 20 MG TABLET PO SCH ×2 (09:41→16:41)
[2020-07-24] MEDS: CLOPIDOGREL BISULFATE 75 MG TABLET PO SCH (09:42)
[2020-07-24] MEDS: SULFAMETH/TRIMETH 800/160 MG 1 UDTAB TABLET PO SCH ×2 (09:42→21:06)
[2020-07-24] MEDS: PANTOPRAZOLE 40 MG TABLET.DR PO SCH (09:42)
[2020-07-24] MEDS: ACETAMINOPHEN 325 MG TABLET PO PRN (09:42)
--- NOTE | 2020-07-24 09:42 | NUR ---
GIVEN TYLENOL FOR AGITATION.
--- NOTE | 2020-07-24 09:53 | NUR ---
GIVEN VISTARIL FOR AGITATION.
[2020-07-24] MEDS: LEVETIRACETAM (250 MG) 250 MG TABLET PO SCH ×2 (09:54→16:50)
[2020-07-24 10:08] LABS: CALCIUM, SERUM 9.3 mg/dL (8.5-10.1); CARBON DIOXIDE 20 mmol/L (21-32); CHLORIDE 104 mmol/L (98-107); GLUCOSE 100 mg/dL (74-106); POTASSIUM 4.8 mmol/L (3.5-5.1); SODIUM SERUM 135 mmol/L (136-145); UREA NITROGEN, BLOOD 43 mg/dL (7-18)
[2020-07-24] MEDS: CLOTRIMAZOLE 1% 15 GM TUBE TP SCH ×2 (10:14→18:09)
[2020-07-24] MEDS: Z GUARD REMEDY 2 OZ OINT TP SCH (10:15)
--- NOTE | 2020-07-24 10:30 | NUR ---
find pt. very jittery,agitated,dr. cr here and orders given.has 1;1 sitter already.
--- NOTE | 2020-07-24 10:51 | NUR ---
ZYPREXA IM GIVEN,REFUSING VITAL SIGNS.RR WNL'S.
[2020-07-24] MEDS ORDERED: OLANZAPINE 10 MG VIAL IM ONE (11:00)
--- NOTE | 2020-07-24 11:40 | NUR ---
call out to miroslava mitering machine operator as pt's bun,creatinine elevated and not taking fluids.
--- NOTE | 2020-07-24 11:55 | NUR ---
IV START RT FOREARM WITH #22 ANGIO,PT. FIGHTING WITH PROCEDURE.
[2020-07-24] MEDS ORDERED: IV NS 0.9% 500 ML IV ONE (12:00)
--- NOTE | 2020-07-24 12:42 | NUR ---
multiple attempts at trying to give pt. fluids.to start iv fluid and hep lock,pt. still a little agitated off and on.
--- NOTE | 2020-07-24 15:47 | NUR ---
STILL AGITATED AT TIMES AND THEN SETTLES DOWN.
[2020-07-24 16:00] VITALS: BP 140/64
--- NOTE | 2020-07-24 16:16 | NUR ---
REFUSED ACCU-CHECK AT NOON AND AT THIS TIME,FIGHTING NURSE.
[2020-07-24 20:00] VITALS: BP 155/78
--- NOTE | 2020-07-24 20:12 | NUR ---
MICHELLE RN NOTES PATIENT VERY AGITATED/ANXIOUS AT THIS TIME. PER CHARGE NURSE GIVE SOMETHING FOR ANXIETY. GIVEN VISTARIL 25MG PRN.
[2020-07-24 20:47] VITALS: BP 155/78
--- NOTE | 2020-07-24 21:00 | NUR ---
MICHELLE WALTON NOTES PATIENT'S NIECE TALKED TO CHARGE. PER CHARGE NURSE, DARRELL BELLO, NIECE, WOULD LIKE TO DISCUSS PATIENT UPDATE WITH DR. RIVERA, AND IS VERY UPSET THAT NO ONE HAS CONTACTED PT. FAMILY SINCE HIS ADMISSION. COMPLAINING HE HAS DETERIORATED SINCE HIS ADMISSION TO [facility]. REPORTED A FAMILY MEMBER, BLOSSOM, IN HIS CONTACT HAS PASSED.
[2020-07-24] MEDS: ATORVASTATIN 40 MG TABLET PO SCH (21:06)
[2020-07-24] MEDS: MIRTAZAPINE 15 MG TABLET PO SCH (21:06)
--- NOTE | 2020-07-24 22:00 | NUR ---
MICHELLE RN NOTES PATIENT BS: [id number]. GIVEN 4 UNITS OF INSULIN PER SLIDING SCALE.
[2020-07-24] MEDS: *INSULIN REGULAR(HUMULIN R)HUM 100 UNIT/ML VIAL SQ PRN (22:26)
[2020-07-25] MEDS: hydrOXYzine PAMOATE 25 MG CAPSULE PO PRN (03:51)
--- NOTE | 2020-07-25 03:59 | NUR ---
MICHELLE RN NOTES PATIENT BECOMING VERY AGITATED/ANXIOUS, LIKE HAVING PANIC ATTACKS IN HIS SLEEP. GIVEN VISTARIL PRN FOR ANXIETY.
--- NOTE | 2020-07-25 06:47 | NUR ---
MICHELLE RN CLOSING NOTES PATIENT IN BED. SLEPT INTERMITTENTLY LAST NIGHT. EPISODES OF PANIC ATTACKS/ANXIETY ATTACKS. GIVEN PRN MEDICATION. ALL SCHEDULED MEDS GIVEN. NO S/S OF DISTRESS JOSE MANUEL. NOT EXHIBITING SYMPTOMS OF PAIN VIA FLACC. SAFETY KEPT IN PLACE THE WHOLE SHIFT: BED IN LOWEST, LOCKED POSITION; BED ALARM ON. SITTER IN THE ROOM. PATIENT HAD X1 LOOSE, BROWN STOOL IN THE AM. CLEANED AND CHANGE WITH SITTER. WILL ENDORSE CARE TO MORNING SHIFT NURSE
--- NOTE | 2020-07-25 06:52 | NUR ---
RN NOTES NIECE'S NAME IS DARRELL ACE. PHONE NUMBER [phone]. WILL ENDORSE THIS TO MORNING SHIFT NURSE WELL.
[2020-07-25 08:00] VITALS: BP 123/61
[2020-07-25] MEDS: PANTOPRAZOLE 40 MG TABLET.DR PO SCH (08:07)
[2020-07-25] MEDS: BLOOD SUGAR DIAGNOSTIC 1 EACH STRIP VI SCH ×3 (08:08→16:05)
[2020-07-25] MEDS: GLUCERNA SHAKE 237 ML CAN PO SCH ×2 (08:08→16:03)
[2020-07-25] MEDS: FAMOTIDINE (20 MG) 20 MG TABLET PO SCH ×2 (08:31→16:03)
[2020-07-25] MEDS: METFORMIN 500 MG TABLET PO SCH ×2 (08:31→16:05)
[2020-07-25] MEDS: CLOPIDOGREL BISULFATE 75 MG TABLET PO SCH (08:31)
[2020-07-25] MEDS: TAMSULOSIN 0.4 MG CAP.SR.24H PO SCH ×2 (08:31→16:03)
[2020-07-25] MEDS: SULFAMETH/TRIMETH 800/160 MG 1 UDTAB TABLET PO SCH (08:31)
[2020-07-25] MEDS: FINASTERIDE (5 MG) 5 MG TABLET PO SCH (08:31)
[2020-07-25] MEDS: busPIRone 5 MG TABLET PO SCH ×3 (08:32→16:03)
[2020-07-25] MEDS: Z GUARD REMEDY 2 OZ OINT TP SCH (08:32)
[2020-07-25] MEDS: CLOTRIMAZOLE 1% 15 GM TUBE TP SCH ×2 (08:32→16:04)
[2020-07-25] MEDS: LEVETIRACETAM (250 MG) 250 MG TABLET PO SCH ×2 (08:32→16:03)
[2020-07-25] MEDS: INSULIN REGULAR, HUMAN 100 UNIT/ML 3 ML VIAL SQ PRN ×2 (08:37→12:09)
[2020-07-25 11:24] LABS: BASOPHILS # (AUTO) 0.1 /CMM (0.0-0.2); BASOPHILS % (AUTO) 0.4 % (0.0-2.0); HEMATOCRIT 40 % (39-51); LYMPHOCYTES # (AUTO) 1.8 /CMM (0.8-4.8); LYMPHOCYTES % (AUTO) 9.6 % (20.0-44.0); MEAN CORPUSCULAR HGB CONC 32 g/dl (31.0-36.0); MEAN CORPUSCULAR VOLUME 90 fL (80-96); MONOCYTES # (AUTO) 1.2 /CMM (0.1-1.30); MONOCYTES % (AUTO) 6.6 % (2.0-12.0); NEUTROPHILS # (AUTO) 15.3 /CMM (1.8-8.9); NEUTROPHILS % (AUTO) 82.4 % (43.0-81.0); PLATELET COUNT (AUTO) 469 /CMM (150-450); RED BLOOD CELL COUNT(AUTO) 4.47 MIL/uL (4.5-6.0); WHITE BLOOD COUNT (AUTO) 18.6 K/uL (4.3-11.0)
--- NOTE | 2020-07-25 11:27 | NUR ---
Patient agitated ,yelling ,banging at dimple chair and assaultive .Tried to calm patient down ,offered po Ativan ,1:1 interaction with patient but unsuccessful ,patient seen by with new order Zyprexa 3MG IM ,all orders carried out and given IM injection by primary NURSE at 11:27 , no physical hold and patient accept the injection voluntarily .patient refused VS x4 every 15 minutes for 1 hour ,no SOB ,no s/s of distress noted ,patient tolerated injection well ,will continue to monitor .
[2020-07-25] MEDS ORDERED: OLANZAPINE 10 MG VIAL IM ONE (11:30)
[2020-07-25 11:38] LABS: CALCIUM, SERUM 9.5 mg/dL (8.5-10.1); CARBON DIOXIDE 22 mmol/L (21-32); CHLORIDE 106 mmol/L (98-107); CREATININE 1.9 mg/dL (0.6-1.3); GLUCOSE 149 mg/dL (74-106); MAGNESIUM 2.4 mg/dL (1.8-2.4); PHOSPHORUS 2.6 mg/dL (2.5-4.9); POTASSIUM 4.5 mmol/L (3.5-5.1); SODIUM SERUM 140 mmol/L (136-145); UREA NITROGEN, BLOOD 42 mg/dL (7-18)
[2020-07-25 16:00] VITALS: BP 139/73
--- NOTE | 2020-07-25 16:10 | NUR ---
RN CLOSING NOTE p
--- NOTE | 2020-07-25 16:10 | NUR ---
RN CLOSING NOTE PATIENT IS DISCHARGED TO M/S THIRD FLOOR FOR MEDICAL CARE, HYDRATION AND FAILURE TO THRIVE DIAGNOSIS. REPORT CALLED TO CARMEN FOR CONTINUATION OF CARE. SITTER GOING WITH PATIENT. REFUSED MEDICATIONS, AWARE.
[2020-07-25] MEDS ORDERED: BLOO-668 IN (16:46)
[2020-07-25] MEDS ORDERED: INSU100V3 SQ (16:46)
[2020-07-25] MEDS ORDERED: NUT.237L28 PO (16:46)
[2020-07-25] MEDS ORDERED: SULF1TAB48 PO (16:46)
[2020-07-25] MEDS ORDERED: MAG30ORA PO (16:46)
[2020-07-25] MEDS ORDERED: ACET-868 PO (16:46)
[2020-07-25] MEDS ORDERED: ALLA266C2 TP ×2 (16:46)
[2020-07-25] MEDS ORDERED: HYDR-500 PO (16:46)
[2020-07-25] MEDS ORDERED: LEVE500T9 PO (16:46)
[2020-07-25] MEDS ORDERED: CLOT15CR27 TP (16:46)
[2020-07-25] MEDS ORDERED: BUSP5TAB3 PO (16:46)
[2020-07-25] MEDS ORDERED: MAGN400O6 PO (16:46)
== END 2020-07-25 16:15 | disposition still patient (30) | DRG 876 ==
LOC: GPS 07-12 00:25
PROVIDERS: ADMIT Psychiatry & Neurology Psychiatry; ATTEND Nurse Practitioner Acute Care
PROC: 0JBQ0ZZ Excision of Right Foot Subcutaneous Tissue and Fascia, Open Approach (ICD-10-PCS; principal; 2020-07-13)
DX: F20.9 Schizophrenia, unspecified (principal); F01.50 Vascular dementia, unspecified severity, without behavioral disturbance, psychotic disturbance, mood disturbance, and anxiety; N17.0 Acute kidney failure with tubular necrosis; Z93.6 Other artificial openings of urinary tract status; E11.65 Type 2 diabetes mellitus with hyperglycemia; N39.0 Urinary tract infection, site not specified; D68.59 Other primary thrombophilia; R45.851 Suicidal ideations; F29 Unspecified psychosis not due to a substance or known physiological condition; F41.9 Anxiety disorder, unspecified; E11.40 Type 2 diabetes mellitus with diabetic neuropathy, unspecified; E11.622 Type 2 diabetes mellitus with other skin ulcer; E11.621 Type 2 diabetes mellitus with foot ulcer; L97.519 Non-pressure chronic ulcer of other part of right foot with unspecified severity; E78.5 Hyperlipidemia, unspecified; I10 Essential (primary) hypertension; K21.9 Gastro-esophageal reflux disease without esophagitis; N40.0 Benign prostatic hyperplasia without lower urinary tract symptoms; Z74.09 Other reduced mobility; Z91.14 Patient's other noncompliance with medication regimen; B96.89 Other specified bacterial agents as the cause of diseases classified elsewhere; L84 Corns and callosities; M62.562 Muscle wasting and atrophy, not elsewhere classified, left lower leg; M62.561 Muscle wasting and atrophy, not elsewhere classified, right lower leg; F32.9 Major depressive disorder, single episode, unspecified; Y92.9 Unspecified place or not applicable; T43.595A Adverse effect of other antipsychotics and neuroleptics, initial encounter; Z87.440 Personal history of urinary (tract) infections; N13.9 Obstructive and reflux uropathy, unspecified
CPT/HCPCS: 36415; 70450-TC; 71045-TC; 80048-TC; 80053-TC; 80061-TC; 81001; 82565-TC; 82570-TC; 82962-TC; 83735-TC; 84100-TC; 84155-TC; 84300-TC; 84443-TC; 85025-TC; 85652-TC; 86225; 86235; 86706; 86803; 87081-TC; 87086-TC; 87340; 97116-TC; 97530-TC; J1815; J3410; J3490; J7040; Q0177

== ENCOUNTER 2020-07-25 16:13 | Inpatient (IN) | payer OTHER ==
[~2020-07-25] VITALS: Ht 172.7 cm; Wt 79.5 kg
[~2020-07-25 16:13] MED LIST changes: +FINA5TAB3 PO; +METF-442 PO; +PANT40TA2 PO
[2020-07-25] MEDS ORDERED: CLOT15CR27 TP (16:46)
[2020-07-25] MEDS ORDERED: LEVE500T9 PO (16:46)
[2020-07-25] MEDS ORDERED: INSU100V3 SQ (16:46)
[2020-07-25] MEDS ORDERED: NUT.237L28 PO (16:46)
[2020-07-25] MEDS ORDERED: ACET-868 PO (16:46)
[2020-07-25] MEDS ORDERED: BLOO-668 IN (16:46)
[2020-07-25] MEDS ORDERED: MAGN400O6 PO (16:46)
[2020-07-25] MEDS ORDERED: HYDR-500 PO (16:46)
[2020-07-25] MEDS ORDERED: BUSP5TAB3 PO (16:46)
[2020-07-25] MEDS ORDERED: SULF1TAB48 PO (16:46)
[2020-07-25] MEDS ORDERED: ALLA266C2 TP ×2 (16:46)
[2020-07-25] MEDS ORDERED: MAG30ORA PO (16:46)
[2020-07-25 17:15] VITALS: BP 130/60
--- NOTE | 2020-07-25 17:15 | NUR ---
MS SUPERVISOR PARK WORKERS NOTES PATIENT ADMITTED FROM [facility] , REPORT GIVEN BY CINTHYA WALTON. PATIENT UNABLE TO ANSWER QUESTIONS, RECEIVED ON 14 DAY HOLD BEGAN July, TALKING FEW WORDS UNCLEAR, WITH CONFUSION, EASILY AGITATED. MOVING ALL EXTREMITIES . NO ACUTE DISTRESS NOTED. BREATHING UNLABORED. NO SOB NOTED. IV ACCESS PATENT AND INTACT, NO REDNESS, NO SWELLING NOTED. NOTIFED TYSON MARTINEZ REGARDING PATIENT ARRIVAL ON THE UNIT AND FOR ADMISSION ORDERS AND MEDICATION RECONCILIATION NEEDS DONE, MD SAID HE WILL PUT IN ORDERS. SAFETY MEASURES IN PLACE. SITTER AT BEDSIDE.WILL CONTINUE TO MONITOR ACCORDINGLY
[2020-07-25] MEDS ORDERED: MAGNESIUM HYDROXIDE 30 ML UDC PO PRN ×2 (17:30→18:00)
[2020-07-25] MEDS ORDERED: Z GUARD REMEDY 2 OZ OINT TP PRN (17:30)
[2020-07-25] MEDS ORDERED: HYDROCODONE/APAP 5/325MG TABLET PO PRN (17:30)
[2020-07-25] MEDS ORDERED: MAG HYDROX/AL HYDROX/SIMETH 30 ML UDC PO PRN ×2 (17:30→18:00)
[2020-07-25] MEDS ORDERED: ACETAMINOPHEN 325 MG TABLET PO PRN (17:30)
[2020-07-25] MEDS ORDERED: ZOLPIDEM TARTRATE 5 MG TABLET PO PRN (17:30)
[2020-07-25] MEDS ORDERED: ONDANSETRON HCL/PF 4 MG/2 ML VIAL IVP PRN (17:30)
[2020-07-25] MEDS ORDERED: DEXTROSE 50%-WATER 50 ML DISP.SYRIN IV PRN (17:30)
[2020-07-25] MEDS: BLOOD SUGAR DIAGNOSTIC 1 EACH STRIP VI SCH ×2 (17:30→22:29)
[2020-07-25] MEDS: IV D5/0.45 NACL 1,000 ML IV SCH (17:58)
[2020-07-25] MEDS ORDERED: ENOXAPARIN SODIUM 30 MG/0.3 ML DISP.SYRIN SQ SCH (18:00)
--- NOTE | 2020-07-25 18:00 | NUR ---
MS RN NOTES PATIENT REFUSED BODY ASSESSMENT FOR THE REST OF THE BODY CONSTANTLY MOVING ALL EXTREMITIES , PATIENT ONLY ALLOWED BILATERAL LEGS AND BILATERAL ELBOW PHOTO TAKEN. REFUSED ACCU CHECK , PATIENT PULLING HANDS
[2020-07-25] MEDS: CEFTRIAXONE 1 G in IV D5W 50 ML IV SCH (18:42)
--- NOTE | 2020-07-25 19:00 | NUR ---
MS RN NOTES PATIENT IN BED AWAKE, RESPOND TO NAME, WITH CONFUSION, EASILY AGITATED. MOVING ALL EXTREMITIES . NO ACUTE DISTRESS NOTED. BREATHING UNLABORED. NO SOB NOTED. IV ACCESS PATENT AND INTACT, NO REDNESS, NO SWELLING NOTED. NEEDS ATTENDED AND ANTICIPATED. SAFETY MEASURES IN PLACE. SITTER AT BEDSIDE.WILL ENDORSE TO NIGHT NURSE FOR CONTINUITY OF CARE
--- NOTE | 2020-07-25 19:30 | NUR ---
RN OPENING NOTES: RECEIVED PATIENT PLACE IN BED COMFORTABLY, SLEEPING BUT EASILY AROUSABLE,A/O X1, COBATIVE/ AGGRESSIVE BEHAVIOR WITH 1:1 SITTER, ON O2 INHALATION AT 2LPM, NO SOB WAS OBSERVED, IV LINE AT RH#22, OF D5/0.45NSS @75ML PER HOUR INFUSING WELL, PATIENT BARELY EAT DURING THE SHIFT, OFFERED PUDDING. ON BLOOD SUGAR CHECK, WITH SUPRAPUBIC CATHETER IN MID ABDOMEN, RUNNING WITH 200CC URINE OUTPUT, PATIENT WAS KEPT MONITORED, KEPT CLEAN AND DRY, WILL CONTINUE TO MONITOR.
[2020-07-25 20:00] VITALS: BP 150/78
--- NOTE | 2020-07-25 21:00 | NUR ---
RN NOTES: PATIENT WAS UNABLE TO ASSESS THE BACK PART OF THE BODY FOR ANY CHANGES I SKIN INTEGRITY DUE TO AGGRESSIVE AND COMBATIVE BEHAVIOR AND REFUSAL TO TURN.
[2020-07-25] MEDS: ATORVASTATIN 40 MG TABLET PO SCH (21:40)
[2020-07-25] MEDS: ENOXAPARIN SODIUM 30 MG/0.3 ML DISP.SYRIN SQ SCH (21:46)
[2020-07-25] MEDS ORDERED: MIRTAZAPINE 15 MG TABLET PO SCH (22:00)
[2020-07-25] MEDS: *INSULIN REGULAR(HUMULIN R)HUM 100 UNIT/ML VIAL SQ PRN (22:21)
--- NOTE | 2020-07-25 22:22 | NUR ---
RN NOTES: BLOOD SUGAR = 163 INSULIN WAS NOT GIVEN BECAUSE PATIENT DOES NOT EAT.
[2020-07-26 06:29] LABS: BASOPHILS # (AUTO) 0.1 /CMM (0.0-0.2); BASOPHILS % (AUTO) 0.3 % (0.0-2.0); EOSINOPHILS % (AUTO) 1.1 % (0.0-6.0); HEMATOCRIT 37 % (39-51); HEMOGLOBIN 12.3 g/dL (13.5-17.5); LYMPHOCYTES # (AUTO) 1.7 /CMM (0.8-4.8); LYMPHOCYTES % (AUTO) 10.6 % (20.0-44.0); MEAN CORPUSCULAR HGB CONC 33 g/dl (31.0-36.0); MEAN CORPUSCULAR VOLUME 89 fL (80-96); MONOCYTES # (AUTO) 0.9 /CMM (0.1-1.30); MONOCYTES % (AUTO) 5.4 % (2.0-12.0); NEUTROPHILS # (AUTO) 13.3 /CMM (1.8-8.9); NEUTROPHILS % (AUTO) 82.6 % (43.0-81.0); PLATELET COUNT (AUTO) 386 /CMM (150-450); RED BLOOD CELL COUNT(AUTO) 4.17 MIL/uL (4.5-6.0); WHITE BLOOD COUNT (AUTO) 16.2 K/uL (4.3-11.0)
[2020-07-26] MEDS: IV D5/0.45 NACL 1,000 ML IV SCH (06:29)
--- NOTE | 2020-07-26 06:49 | NUR ---
RN CLOSING NOTES: PATIENT WAS PLACE IN BED COMFORTABLY, INTERRUPTED SLEEP EASILY AROUSABLE TO STIMULI, A/O X1, COMBATIVE/ AGGRESSIVE BEHAVIOR WITH 1:1 SITTER, ON O2 INHALATION AT 2LPM, NO SOB WAS OBSERVED, IV LINE AT RH#22, OF D5/0.45NSS @75ML PER HOUR INFUSING WELL, ON BLOOD SUGAR MONITORING DUE TO POOR EATING , WITH SUPRAPUBIC CATHETER IN MID ABDOMEN WITH URINE OUTPUT OF 400CC, KEPT CLEAN AND DRY, ENDORSE TO INCOMING SHIFT.
[2020-07-26] MEDS: BLOOD SUGAR DIAGNOSTIC 1 EACH STRIP VI SCH ×5 (07:02→21:42)
[2020-07-26 07:20] LABS: CARBON DIOXIDE 23 mmol/L (21-32); CHLORIDE 110 mmol/L (98-107); CREATININE 1.6 mg/dL (0.6-1.3); GLUCOSE 136 mg/dL (74-106); MAGNESIUM 2.3 mg/dL (1.8-2.4); PHOSPHORUS 2.7 mg/dL (2.5-4.9); POTASSIUM 4.3 mmol/L (3.5-5.1); SODIUM SERUM 144 mmol/L (136-145); UREA NITROGEN, BLOOD 41 mg/dL (7-18)
--- NOTE | 2020-07-26 07:20 | NUR ---
MS RN NOTES PATIENT IN BED AWAKE, RESPOND TO NAME, WITH CONFUSION, EASILY AGITATED. MOVING ALL EXTREMITIES OCCASIONALLY. NO ACUTE DISTRESS NOTED. BREATHING UNLABORED. NO SOB NOTED. IV ACCESS PATENT AND INTACT, NO REDNESS, NO SWELLING NOTED. SAFETY MEASURES IN PLACE. SITTER AT BEDSIDE.WILL CONTINUE TO MONITOR ACCORDINGLY
[2020-07-26] MEDS: PANTOPRAZOLE 40 MG TABLET.DR PO SCH (08:10)
[2020-07-26] MEDS ORDERED: Z GUARD REMEDY 2 OZ OINT TP SCH (09:00)
[2020-07-26] MEDS: FAMOTIDINE (20 MG) 20 MG TABLET PO SCH ×2 (09:00→17:16)
[2020-07-26] MEDS: busPIRone 5 MG TABLET PO SCH ×3 (09:01→17:16)
[2020-07-26] MEDS: TAMSULOSIN 0.4 MG CAP.SR.24H PO SCH ×2 (09:01→17:16)
[2020-07-26] MEDS: LEVETIRACETAM (250 MG) 250 MG TABLET PO SCH ×2 (09:01→17:15)
[2020-07-26] MEDS: CLOPIDOGREL BISULFATE 75 MG TABLET PO SCH (09:02)
[2020-07-26] MEDS: FINASTERIDE (5 MG) 5 MG TABLET PO SCH (09:02)
[2020-07-26] MEDS: GLUCERNA SHAKE 237 ML CAN PO SCH ×2 (09:04→17:55)
[2020-07-26] MEDS: CLOTRIMAZOLE 1% 15 GM TUBE TP SCH ×2 (09:11→17:56)
--- NOTE | 2020-07-26 09:55 | NUR ---
SNF Referral: ROBBIN faxed a referral to [facility] with attn to Any to the fax number: [phone].
--- NOTE | 2020-07-26 11:47 | NUR ---
DPOA Contact: ROBBIN and bottle caser, Uma Taveras, met with the pts DPOA/trustee, Oren Mackenzie ([phone]), to discuss discharge planning. It was explained to the pts DPOA that the pts insurance company is difficult to work with in authorizing placement in a nursing facility. Pts finances were then discussed and the pts DPOA stated that he is unaware of what the pts finances are like and is willing to fund the next plan of care for the time being. It was recommended that the DPOA consider allowing placement in a board and care or home with caregivers. Pts bottle caser will be discussing these options with the pts MD and will plan accordingly.
--- NOTE | 2020-07-26 18:40 | NUR ---
MS RN NOTES PATIENT IN BED AWAKE, RESPOND TO NAME, WITH CONFUSION, EASILY AGITATED. MOVING ALL EXTREMITIES OCCASIONALLY. NO ACUTE DISTRESS NOTED. BREATHING UNLABORED. NO SOB NOTED. IV ACCESS PATENT AND INTACT, NO REDNESS, NO SWELLING NOTED. DUE MEDICATIONS GIVEN. NEEDS ATTENDED AND ANTICIPATED . SAFETY MEASURES IN PLACE. SITTER AT BEDSIDE.WILL ENDORSE TO NIGHT NURSE FOR CONTINUITY OF CARE
[2020-07-26] MEDS: CEFTRIAXONE 1 G in IV D5W 50 ML IV SCH (18:47)
[2020-07-26] MEDS: IV D5/0.45 NACL 1,000 ML IV PRN (18:49)
--- NOTE | 2020-07-26 19:35 | NUR ---
MS/RN OPENING NOTE RECEIVED PATIENT SLEEPING IN BED. ALERT AND ORIENTED X 1. NO S/SX OF PAIN NOTED AT THIS TIME. IV ACCESS TO RIGHT HAND INTACT AND PATENT. CONTINUES ON IV D5 1/2 NS @ 75ML/HR. CONTINUES ON IV ABX FOR UTI. SUPRAPUBIC CATHETER INTACT AND PATENT. SITTER IN WITH PATIENT. CALL LIGHT WITHIN REACH. ASPIRATION, FALL AND SAFETY PRECAUTIONS MAINTAINED. WILL CONTINUE TO MONITOR.
[2020-07-26] MEDS: MIRTAZAPINE 15 MG TABLET PO SCH (21:19)
[2020-07-26] MEDS: ATORVASTATIN 40 MG TABLET PO SCH (21:19)
[2020-07-26] MEDS: ENOXAPARIN SODIUM 30 MG/0.3 ML DISP.SYRIN SQ SCH (21:21)
[2020-07-26] MEDS ORDERED: MIRTAZAPINE 15 MG TABLET PO SCH (22:00)
[2020-07-27] MEDS: BLOOD SUGAR DIAGNOSTIC 1 EACH STRIP VI SCH ×4 (06:12→21:07)
--- NOTE | 2020-07-27 06:15 | NUR ---
MS/RN NOTE PATIENT REFUSED INSULIN THIS AM. ANXIOUS, COMBATIVE.
--- NOTE | 2020-07-27 07:00 | NUR ---
MS/RN CLOSING NOTE PATIENT CURRENTLY SLEEPING IN BED. ALERT AND ORIENTED X 1. NO S/SX OF PAIN OR AGITATION NOTED AT THIS TIME. IV ACCESS TO RIGHT HAND INTACT AND PATENT. CONTINUES ON IVF D5 NS @ 75ML/HR. CONTINUES ON IV ABX. SITTER IN WITH PATIENT. SUPRAPUBIC CATHETER INTACT AND PATENT DRAINING CLOUDY, YELLOW URINE. URINE OUTPUT IS 450CC THIS SHIFT. CALL LIGHT WITHIN REACH. ASPIRATION, FALL AND SAFETY PRECAUTIONS MAINTAINED. WILL ENDORSE PLAN OF CARE TO ONCOMING SHIFT.
[2020-07-27] MEDS: PANTOPRAZOLE 40 MG TABLET.DR PO SCH (07:30)
[2020-07-27 08:00] VITALS: BP 140/60
--- NOTE | 2020-07-27 08:00 | NUR ---
RN OPENING NOTE RECEIVED PATIENT IN BED, CONFUSED, SITTER BY THE BED SIDE, ABLE TO RESPONDS ALL STIMULI. DOES NO APPEARS DISTRESS OR DISCOMFORT. SKIN IS WARM TO TOUCH, KEEP CLEAN/DRY, INTACT IV SITE, PATIENT IN SUPRAPUBIC YI CATH. RESPIRATORY EVEN AND UNLABORED ON ROOM AIR. KEPT ELEVATED HOB FOR ENSURE AIRWAY AND ASPIRATION PRECAUTION, ALSO LOWEST BED POSITION. CALL LIGHT WITHIN REACH, WILL CONTINUE TO MONITOR.
[2020-07-27] MEDS: LEVETIRACETAM (250 MG) 250 MG TABLET PO SCH ×2 (09:00→17:07)
[2020-07-27] MEDS: GLUCERNA SHAKE 237 ML CAN PO SCH ×2 (09:00→17:11)
[2020-07-27] MEDS: FINASTERIDE (5 MG) 5 MG TABLET PO SCH (09:00)
[2020-07-27] MEDS: FAMOTIDINE (20 MG) 20 MG TABLET PO SCH ×2 (09:00→17:07)
[2020-07-27] MEDS: CLOPIDOGREL BISULFATE 75 MG TABLET PO SCH (09:00)
[2020-07-27] MEDS: TAMSULOSIN 0.4 MG CAP.SR.24H PO SCH ×2 (09:00→17:07)
[2020-07-27] MEDS: busPIRone 5 MG TABLET PO SCH ×3 (09:00→17:07)
[2020-07-27] MEDS: CLOTRIMAZOLE 1% 15 GM TUBE TP SCH ×2 (09:00→17:35)
[2020-07-27] MEDS: IV D5/0.45 NACL 1,000 ML IV PRN (09:01)
[2020-07-27 09:23] LABS: BASOPHILS # (AUTO) 0.1 /CMM (0.0-0.2); BASOPHILS % (AUTO) 0.7 % (0.0-2.0); EOSINOPHILS % (AUTO) 3.6 % (0.0-6.0); HEMATOCRIT 40 % (39-51); HEMOGLOBIN 12.9 g/dL (13.5-17.5); LYMPHOCYTES % (AUTO) 14.8 % (20.0-44.0); MEAN CORPUSCULAR HGB CONC 32 g/dl (31.0-36.0); MEAN CORPUSCULAR VOLUME 91 fL (80-96); MONOCYTES # (AUTO) 0.7 /CMM (0.1-1.30); MONOCYTES % (AUTO) 5.1 % (2.0-12.0); NEUTROPHILS # (AUTO) 10.2 /CMM (1.8-8.9); NEUTROPHILS % (AUTO) 75.8 % (43.0-81.0); PLATELET COUNT (AUTO) 366 /CMM (150-450); RED BLOOD CELL COUNT(AUTO) 4.43 MIL/uL (4.5-6.0); WHITE BLOOD COUNT (AUTO) 13.5 K/uL (4.3-11.0)
[2020-07-27 10:01] LABS: CALCIUM, SERUM 9.2 mg/dL (8.5-10.1); CREATININE 1.2 mg/dL (0.6-1.3); POTASSIUM 4.2 mmol/L (3.5-5.1)
--- NOTE | 2020-07-27 10:48 | NUR ---
RN NOTES PATIENT WAS SEEN BY DR. DELGADO; PERFORMED PARTIAL REMOVAL OF CALLUS ON UNDERSIDE OF RIGHT FOOT. PATIENT WAS RESTLESS AND MOVING UPPER/LOWER EXTREMITIES, MD DEFERRED PROCEDURE AT A LATER TIME. WILL CONTINUE TO MONITOR.
--- NOTE | 2020-07-27 11:30 | NUR ---
RN NOTES SUPRAPUBIC CATH DRAINAGE BAG CHANGED SECONDARY TO BEING SOILED; SUPRAPUBIC CATHETER INTACT. OUTPUT PREVIOUSLY RECORDED. WILL CONTINUE TO MONITOR.
--- NOTE | 2020-07-27 12:30 | NUR ---
PATIENT REFUSED ALL MORNING MEDS AND LUNCH TIME MEDICATIONS AND POOR APPETITE AT BKF/LUNCH, DR. WALKER MADE AWARE.
[2020-07-27] MEDS: INSULIN REGULAR, HUMAN 100 UNIT/ML 3 ML VIAL SQ PRN ×2 (13:09→17:10)
[2020-07-27 16:00] VITALS: BP 134/63
[2020-07-27] MEDS: CEFTRIAXONE 1 G in IV D5W 50 ML IV SCH (18:13)
--- NOTE | 2020-07-27 18:44 | NUR ---
RN CLOSING NOTE PATIENT IN BED RESTING, ALERT AND ORIENTED TO PERSON, CONFUSED. SKIN IS WARM TO TOUCH, KEEP CLEAN/DRY, INTACT IV SITE. COLLECTED URINE AND COVID-19 RAPID AND SENT LAB. RESPIRATORY EVEN AND UNLABORED ON ROOM AIR. KEPT ELEVATED HOB FOR ENSURE AIRWAY AND ASPIRATION PRECAUTION, ALSO LOWEST BED POSITION FOR SAFETY. CALL LIGHT WITHIN REACH, WILL ENDORSE TEXTILE MACHINERY SALES REPRESENTATIVE.
--- NOTE | 2020-07-27 19:50 | NUR ---
MS/RN OPENING NOTE RECEIVED PATIENT RESTING IN BED. AWAKE, ALERT AND ORIENTED X 1. NO C/O PAIN AT THIS TIME. PATIENT MORE AWAKE AND CONVERSING. ASKING WHERE HE IS. PATIENT ORIENTED TO NAME AT THIS TIME. IV ACCESS TO RIGHT HAND INTACT AND PATENT. CONTINUES ON IVF D5 1/2 NS @ 75ML/HR. CONTINUES ON IV ABX FOR UTI. SUPRAPUBIC CATHETER INTACT AND PATENT DRAINING CLOUDY YELLOW URINE. COVID RAPID TEST RESULT IS NEGATIVE. CALL LIGHT WITHIN REACH. ASPIRATION, FALL AND SAFETY PRECAUTIONS MAINTAINED. WILL CONTINUE TO MONITOR.
[2020-07-27 20:00] VITALS: BP 137/77
[2020-07-27] MEDS: ENOXAPARIN SODIUM 30 MG/0.3 ML DISP.SYRIN SQ SCH (20:49)
[2020-07-27] MEDS: ATORVASTATIN 40 MG TABLET PO SCH (21:07)
[2020-07-27] MEDS: MIRTAZAPINE 15 MG TABLET PO SCH (21:07)
[2020-07-27] MEDS: *INSULIN REGULAR(HUMULIN R)HUM 100 UNIT/ML VIAL SQ PRN (21:26)
[2020-07-28] MEDS: IV D5/0.45 NACL 1,000 ML IV PRN (00:08)
[2020-07-28] MEDS: BLOOD SUGAR DIAGNOSTIC 1 EACH STRIP VI SCH ×3 (06:26→17:27)
[2020-07-28 06:39] LABS: BASOPHILS % (AUTO) 0.3 % (0.0-2.0); EOSINOPHILS % (AUTO) 4.8 % (0.0-6.0); HEMATOCRIT 38 % (39-51); HEMOGLOBIN 12.6 g/dL (13.5-17.5); LYMPHOCYTES # (AUTO) 1.8 /CMM (0.8-4.8); LYMPHOCYTES % (AUTO) 17.1 % (20.0-44.0); MEAN CORPUSCULAR HGB CONC 33 g/dl (31.0-36.0); MEAN CORPUSCULAR VOLUME 90 fL (80-96); MONOCYTES # (AUTO) 0.5 /CMM (0.1-1.30); MONOCYTES % (AUTO) 4.7 % (2.0-12.0); NEUTROPHILS # (AUTO) 7.8 /CMM (1.8-8.9); NEUTROPHILS % (AUTO) 73.1 % (43.0-81.0); PLATELET COUNT (AUTO) 355 /CMM (150-450); RED BLOOD CELL COUNT(AUTO) 4.23 MIL/uL (4.5-6.0); WHITE BLOOD COUNT (AUTO) 10.7 K/uL (4.3-11.0)
[2020-07-28] MEDS: INSULIN REGULAR, HUMAN 100 UNIT/ML 3 ML VIAL SQ PRN ×4 (06:41→23:49)
--- NOTE | 2020-07-28 06:45 | NUR ---
MS/RN CLOSING NOTE PATIENT CURRENTLY SLEEPING IN BED. ALERT AND ORIENTED X 1. NO S/SX OF PAIN NOTED. IV ACCESS TO RIGHT HAND INTACT AND PATENT. CONTINUES ON IVF D5 NS @ 75ML/HR. CONTINUES ON IV ABX. SUPRAPUBIC CATHETER INTACT AND PATENT DRAINING CLOUDY YELLOW URINE. CALL LIGHT WITHIN REACH. ASPIRATION, FALL AND SAFETY PRECAUTIONS MAINTAINED. WILL ENDORSE PLAN OF CARE TO ONCOMING SHIFT.
[2020-07-28 06:54] LABS: CALCIUM, SERUM 8.6 mg/dL (8.5-10.1); POTASSIUM 3.7 mmol/L (3.5-5.1)
[2020-07-28 08:00] VITALS: BP 149/74
[2020-07-28] MEDS: TAMSULOSIN 0.4 MG CAP.SR.24H PO SCH ×2 (09:36→17:00)
[2020-07-28] MEDS: FINASTERIDE (5 MG) 5 MG TABLET PO SCH (09:36)
[2020-07-28] MEDS: PANTOPRAZOLE 40 MG TABLET.DR PO SCH (09:36)
[2020-07-28] MEDS: busPIRone 5 MG TABLET PO SCH ×3 (09:36→17:00)
[2020-07-28] MEDS: GLUCERNA SHAKE 237 ML CAN PO SCH ×2 (09:36→17:00)
[2020-07-28] MEDS: LEVETIRACETAM (250 MG) 250 MG TABLET PO SCH ×2 (09:36→17:00)
[2020-07-28] MEDS: CLOPIDOGREL BISULFATE 75 MG TABLET PO SCH (09:36)
[2020-07-28] MEDS: FAMOTIDINE (20 MG) 20 MG TABLET PO SCH ×2 (09:36→17:00)
[2020-07-28] MEDS: CLOTRIMAZOLE 1% 15 GM TUBE TP SCH ×2 (09:37→17:00)
[2020-07-28] MEDS: CEFTRIAXONE 1 G in IV D5W 50 ML IV SCH (18:34)
--- NOTE | 2020-07-28 19:40 | NUR ---
PLUMBING SERVICE TECHNICIAN OPENING NOTES: RECEIVED RESIDENT SLEEP IN BED COMFORTABLY, EASILY AROUSABLE, BED IN LOW POSITION, WITH HOB AT 45 DEGREE, CALL LIGHTS WITHIN REACH, NO COMPLAIN OF PAIN AND DISCOMFORT AT THIS TIME, ON IV HYDRATION 09NSS @75 ML/HR INFUSING WELL, ON SUPRA PUBIC CATHETER WITH URINE OUTPUT OF 100CC, NO SIGN OF INFECTION WAS OBSERVED AROUND THE STOMA, RESIDENT WAS OBSERVED COMBATIVE, TO STIMULI, KEPT CLEAN AND DRY, WILL CONTINUE TO MONITOR.
[2020-07-28 20:00] VITALS: BP 128/67
[2020-07-28] MEDS: ENOXAPARIN SODIUM 30 MG/0.3 ML DISP.SYRIN SQ SCH (21:50)
[2020-07-28] MEDS: MIRTAZAPINE 15 MG TABLET PO SCH (21:51)
[2020-07-28] MEDS: ATORVASTATIN 40 MG TABLET PO SCH (21:51)
--- NOTE | 2020-07-28 22:00 | NUR ---
RN NOTES: BS-148 INSULIN NOT GIVEN PATIENT HAS POOR APPETITE.
[2020-07-29] MEDS: BLOOD SUGAR DIAGNOSTIC 1 EACH STRIP VI SCH ×5 (00:25→22:01)
[2020-07-29] MEDS: IV D5/0.45 NACL 1,000 ML IV PRN ×2 (05:40→18:11)
[2020-07-29] MEDS: INSULIN REGULAR, HUMAN 100 UNIT/ML 3 ML VIAL SQ PRN (05:59)
--- NOTE | 2020-07-29 06:00 | NUR ---
RN NOTES: PATIENT BS-161 INSULIN NOT GIVEN DUE TO DECREASE APPETITE.
[2020-07-29 06:30] LABS: BASOPHILS % (AUTO) 0.3 % (0.0-2.0); EOSINOPHILS % (AUTO) 5.6 % (0.0-6.0); HEMATOCRIT 41 % (39-51); HEMOGLOBIN 13.5 g/dL (13.5-17.5); LYMPHOCYTES # (AUTO) 1.7 /CMM (0.8-4.8); LYMPHOCYTES % (AUTO) 18.8 % (20.0-44.0); MEAN CORPUSCULAR HGB CONC 33 g/dl (31.0-36.0); MEAN CORPUSCULAR VOLUME 90 fL (80-96); MONOCYTES # (AUTO) 0.4 /CMM (0.1-1.30); MONOCYTES % (AUTO) 4.8 % (2.0-12.0); NEUTROPHILS # (AUTO) 6.5 /CMM (1.8-8.9); NEUTROPHILS % (AUTO) 70.5 % (43.0-81.0); PLATELET COUNT (AUTO) 344 /CMM (150-450); RED BLOOD CELL COUNT(AUTO) 4.58 MIL/uL (4.5-6.0); WHITE BLOOD COUNT (AUTO) 9.2 K/uL (4.3-11.0)
[2020-07-29 07:10] LABS: CALCIUM, SERUM 8.9 mg/dL (8.5-10.1); CREATININE 0.9 mg/dL (0.6-1.3); MAGNESIUM 1.8 mg/dL (1.8-2.4); PHOSPHORUS 2.9 mg/dL (2.5-4.9); POTASSIUM 3.6 mmol/L (3.5-5.1)
--- NOTE | 2020-07-29 07:30 | NUR ---
ms rn 'received on bed,awake,oriented x1,sleep'ing not in any form of distress, respirations even and unlabored,no sob noted, will monitor patient.
[2020-07-29 08:00] VITALS: BP 152/75
[2020-07-29] MEDS: GLUCERNA SHAKE 237 ML CAN PO SCH ×2 (09:00→17:00)
--- NOTE | 2020-07-29 09:10 | NUR ---
ms rn was seen by dr.rutherford newell/ orders made and carried out.
[2020-07-29] MEDS: LEVETIRACETAM (250 MG) 250 MG TABLET PO SCH ×2 (09:16→17:05)
[2020-07-29] MEDS: TAMSULOSIN 0.4 MG CAP.SR.24H PO SCH ×2 (09:17→17:04)
[2020-07-29] MEDS: PANTOPRAZOLE 40 MG TABLET.DR PO SCH (09:17)
[2020-07-29] MEDS: FINASTERIDE (5 MG) 5 MG TABLET PO SCH (09:17)
[2020-07-29] MEDS: CLOPIDOGREL BISULFATE 75 MG TABLET PO SCH (09:17)
[2020-07-29] MEDS: busPIRone 5 MG TABLET PO SCH ×3 (09:17→17:04)
[2020-07-29] MEDS: FAMOTIDINE (20 MG) 20 MG TABLET PO SCH ×2 (09:17→17:04)
--- NOTE | 2020-07-29 09:30 | NUR ---
ms orellana breakfast served,due meds given, not eating much.
--- NOTE | 2020-07-29 12:00 | NUR ---
ms rn blood [id number] not give coverage p'atient is not eating much.
[2020-07-29] MEDS: CLOTRIMAZOLE 1% 15 GM TUBE TP SCH ×2 (12:28→17:06)
[2020-07-29 16:00] VITALS: BP 127/70
[2020-07-29] MEDS: CEFTRIAXONE 1 G in IV D5W 50 ML IV SCH (17:12)
--- NOTE | 2020-07-29 17:54 | NUR ---
ms rn patient refused blood sugar check at this time, for d/c planning in am,no distress noted,all needs attended.
--- NOTE | 2020-07-29 20:00 | NUR ---
MS RN NOTES RECEIVED ON BED A/O X1-2,CONFUSED,PRESENT IVF INFUSING WELL ON RIGHT HAND SITE PATENT.YI CATH IN PLACE DRAINING CLEAR YELLOW OUTPUT.NOTED MULTIPLE RASHES ON BOTH LOWER LEG,FALL RISK,BED ON LOW POSITION AND LOCKED,BED ALARM TRIGGERED,WILL CONTINUE TO MONITOR STATUS.
[2020-07-29 20:56] VITALS: BP 126/61
[2020-07-29] MEDS: ENOXAPARIN SODIUM 30 MG/0.3 ML DISP.SYRIN SQ SCH (21:48)
[2020-07-29] MEDS: ATORVASTATIN 40 MG TABLET PO SCH (21:48)
[2020-07-29] MEDS: MIRTAZAPINE 15 MG TABLET PO SCH (21:51)
[2020-07-29] MEDS: *INSULIN REGULAR(HUMULIN R)HUM 100 UNIT/ML VIAL SQ PRN (22:23)
[2020-07-29 22:56] VITALS: BP 126/61
--- NOTE | 2020-07-30 01:00 | NUR ---
MS RN NOTES IV ACCIDENTALLY PULLED OUR.NEW SALINE LOCK PLACE ON RIGHT FORE ARM #22, IVF RE STARTED.
--- NOTE | 2020-07-30 06:30 | NUR ---
MS RN NOTES Patient is A&Ox1. VSS. 400cc output from suprapubic catheter, yellow and clear. R hand IV changed to R forearm IV patent and infusing D5 1/2 NS at 75cc/hr. No hypo or hyperglycemic reactions noted. No behaviors overnight.
[2020-07-30] MEDS: BLOOD SUGAR DIAGNOSTIC 1 EACH STRIP VI SCH ×4 (06:45→22:30)
[2020-07-30] MEDS: INSULIN REGULAR, HUMAN 100 UNIT/ML 3 ML VIAL SQ PRN ×2 (06:48→11:54)
--- NOTE | 2020-07-30 07:40 | NUR ---
MS RN OPENING NOTE RECEIVED PATIENT SLEEPING IN BED. ALERT AND ORIENTED X 1. NO SIGNS AND SYMPTOMS OF PAIN NOTED AT THIS TIME. IV ACCESS TO RIGHT FOREARM#22 PATENT AND INTACT. CONTINUES ON IV D5 1/2 NS @ 75ML/HR. CONTINUES ON IV ABX FOR UTI. SUPRAPUBIC CATHETER INTACT AND PATENT AND DRAINING WELL. CALL LIGHT WITHIN REACH. SAFETY MEASURES INCLUDING ASPIRATION AND FALL PRECAUTIONS MAINTAINED. WILL CONTINUE TO MONITOR THROUGHOUT SHIFT.
[2020-07-30 08:00] VITALS: BP 159/63
[2020-07-30] MEDS: CLOPIDOGREL BISULFATE 75 MG TABLET PO SCH (08:46)
[2020-07-30] MEDS: PANTOPRAZOLE 40 MG TABLET.DR PO SCH (08:46)
[2020-07-30] MEDS: busPIRone 5 MG TABLET PO SCH ×3 (08:46→17:21)
[2020-07-30] MEDS: FAMOTIDINE (20 MG) 20 MG TABLET PO SCH ×2 (08:46→17:22)
[2020-07-30] MEDS: FINASTERIDE (5 MG) 5 MG TABLET PO SCH (08:47)
[2020-07-30] MEDS: LEVETIRACETAM (250 MG) 250 MG TABLET PO SCH ×2 (08:47→17:22)
[2020-07-30] MEDS: TAMSULOSIN 0.4 MG CAP.SR.24H PO SCH ×2 (08:47→17:21)
[2020-07-30] MEDS: GLUCERNA SHAKE 237 ML CAN PO SCH ×2 (08:48→17:00)
[2020-07-30] MEDS: CLOTRIMAZOLE 1% 15 GM TUBE TP SCH ×2 (08:49→17:50)
--- NOTE | 2020-07-30 11:00 | NUR ---
m/s civil structural engineer: notes [facility] staff here and evaluated pt at bedside. report given to shila (rn) from [facility], spoke to her over the phone. case management to make arrangements. will continue to monitor.
[2020-07-30] MEDS: IV D5/0.45 NACL 1,000 ML IV PRN (11:09)
--- NOTE | 2020-07-30 11:55 | NUR ---
MS RN NOTES BS 162. INSULIN NOT ADMINISTERED DUE TO POOR APPETITE.
--- NOTE | 2020-07-30 13:30 | NUR ---
m/s laboratory manager: notes pt for d'c planning to [facility], case management to arranged. will continue to monitor. pt refused lunch. remains on d5 1/2 ns at 75ml/hr, infusing well. will continue to monitor.
[2020-07-30 16:00] VITALS: BP 128/85
--- NOTE | 2020-07-30 16:30 | NUR ---
m/s psychologist research assistant: notes f/u made to cornelia (daniel) and informed me that she just got off the phone from [place] ([place] and pt was denied and will try [facility].
[2020-07-30] MEDS: CEFTRIAXONE 1 G in IV D5W 50 ML IV SCH (17:52)
--- NOTE | 2020-07-30 19:20 | NUR ---
MS RN NOTES REPORT GIVEN TO ANTON RUCKER FOR CONTINUITY OF CARE.
--- NOTE | 2020-07-30 19:40 | NUR ---
MSRN FULLY AWAKE, TRIES TO COMMUNICATES, WORDS UNCLEAR. UNCOOPERATIVE AT TIMES. REPOSITIONED FOR COMFORT. NO SOB, ON 2L 02 VIA NC.HFR, NEEDS CONSTANT OBSERVATION. PRESENT IVF INFUSING WELL. TO CONTINUE.
[2020-07-30 20:00] VITALS: BP 137/81
--- NOTE | 2020-07-30 22:00 | NUR ---
MSRN DUE MEDS ADMINISTERED, TAKES TIME TO TAKE MEDS WITH PUDDING. BS WAS 134.
[2020-07-30] MEDS: ENOXAPARIN SODIUM 30 MG/0.3 ML DISP.SYRIN SQ SCH (22:28)
[2020-07-30] MEDS: MIRTAZAPINE 15 MG TABLET PO SCH (22:30)
[2020-07-30] MEDS: ATORVASTATIN 40 MG TABLET PO SCH (22:31)
--- NOTE | 2020-07-31 06:00 | NUR ---
MSRN SEEN CRYING AT TIMES. TOTALLY BED BATHED. FELT COMFORTABLE. FELL ASLEEP TILL 07. EASILY AWAKEND WHEN COVERED.POSS DC PENDING PLACEMENT.
[2020-07-31 08:00] VITALS: BP 127/68
--- NOTE | 2020-07-31 08:15 | NUR ---
MS/RN OPENING NOTES RECEIVED PATIENT AWAKE IN BED. ALERT AND ORIENTED X 1. ON ROOM AIR. NO SIGNS AND SYMPTOMS OF PAIN NOTED AT THIS TIME. IV ACCESS TO RIGHT FOREARM#22 PATENT AND INTACT. CONTINUES ON IV D5 1/2 NS @ 75ML/HR. ON SUPRAPUBIC CATHETER INTACT AND PATENT AND DRAINING WELL. CALL LIGHT WITHIN REACH. SAFETY MEASURES INCLUDING ASPIRATION AND FALL PRECAUTIONS MAINTAINED. WILL CONTINUE TO MONITOR.
[2020-07-31] MEDS: busPIRone 5 MG TABLET PO SCH ×3 (08:42→17:37)
[2020-07-31] MEDS: FAMOTIDINE (20 MG) 20 MG TABLET PO SCH ×2 (08:42→17:37)
[2020-07-31] MEDS: FINASTERIDE (5 MG) 5 MG TABLET PO SCH (08:43)
[2020-07-31] MEDS: LEVETIRACETAM (250 MG) 250 MG TABLET PO SCH ×2 (08:43→17:37)
[2020-07-31] MEDS: TAMSULOSIN 0.4 MG CAP.SR.24H PO SCH ×2 (08:43→17:37)
[2020-07-31] MEDS: CLOPIDOGREL BISULFATE 75 MG TABLET PO SCH (08:43)
[2020-07-31] MEDS: PANTOPRAZOLE 40 MG TABLET.DR PO SCH (08:56)
[2020-07-31] MEDS: BLOOD SUGAR DIAGNOSTIC 1 EACH STRIP VI SCH ×3 (08:59→17:36)
[2020-07-31 09:20] LABS: BASOPHILS % (AUTO) 0.6 % (0.0-2.0); EOSINOPHILS % (AUTO) 6.9 % (0.0-6.0); HEMATOCRIT 37 % (39-51); HEMOGLOBIN 12.2 g/dL (13.5-17.5); LYMPHOCYTES % (AUTO) 27.7 % (20.0-44.0); MEAN CORPUSCULAR HGB CONC 33 g/dl (31.0-36.0); MEAN CORPUSCULAR VOLUME 90 fL (80-96); MONOCYTES # (AUTO) 0.4 /CMM (0.1-1.30); MONOCYTES % (AUTO) 6.1 % (2.0-12.0); NEUTROPHILS # (AUTO) 4.2 /CMM (1.8-8.9); NEUTROPHILS % (AUTO) 58.7 % (43.0-81.0); PLATELET COUNT (AUTO) 309 /CMM (150-450); RED BLOOD CELL COUNT(AUTO) 4.12 MIL/uL (4.5-6.0); WHITE BLOOD COUNT (AUTO) 7.2 K/uL (4.3-11.0)
[2020-07-31 09:50] LABS: ALBUMIN 2.3 g/dL (3.4-5.0); BILIRUBIN,TOTAL 0.4 mg/dL (0.2-1.0); CALCIUM, SERUM 8.8 mg/dL (8.5-10.1); MAGNESIUM 1.5 mg/dL (1.8-2.4); PHOSPHORUS 2.9 mg/dL (2.5-4.9); POTASSIUM 3.2 mmol/L (3.5-5.1); TOTAL PROTEIN, SERUM 6.3 g/dL (6.4-8.2)
[2020-07-31] MEDS: GLUCERNA SHAKE 237 ML CAN PO SCH ×2 (09:51→17:37)
[2020-07-31] MEDS: CLOTRIMAZOLE 1% 15 GM TUBE TP SCH ×2 (10:03→17:37)
[2020-07-31 16:00] VITALS: BP 147/65
[2020-07-31] MEDS: CEFTRIAXONE 1 G in IV D5W 50 ML IV SCH (17:40)
--- NOTE | 2020-07-31 18:15 | NUR ---
MS/PRODUCTION HELPER NOTES PATIENT IS ALERT AND ORIENTED X1-2. ABLE TO MAKE NEEDS KNOWN. MEDICALLY STABLE AND MD ORDERED DISCHARGED. CALLED AND ENDORSED PATIENT TO DAILY (ASST. DIRECTOR OF HEALTH AND SERVICES) AT [facility], DISCHARGED INSTRUCTION GIVEN DUE TO PATIENT UNABLE TO COMPREHEND OR RETAIN INFORMATIONS. PATIENT GOT PICKED UP BY A NON-EMERGENCY TRANSPORT VIA GURNEY. SUPRAPUBIC CATHETER IN PLACE DRAINING INTO A CLEAR, YELLOW URINE. ON ROOM AIR. NO SOB NOTED. NO DISTRESSED NOTED AT THIS TIME. ALL BELONGINGS ACCOUNTED FOR.
== END 2020-07-31 18:00 | DRG 682 ==
LOC: MED 16:13
PROVIDERS: ADMIT Internal Medicine; ATTEND Internal Medicine
PROC: 0HBMXZZ Excision of Right Foot Skin, External Approach (ICD-10-PCS; principal; 2020-07-27)
DX: N17.0 Acute kidney failure with tubular necrosis (principal); G93.41 Metabolic encephalopathy; N39.0 Urinary tract infection, site not specified; D68.59 Other primary thrombophilia; L97.419 Non-pressure chronic ulcer of right heel and midfoot with unspecified severity; F32.2 Major depressive disorder, single episode, severe without psychotic features; E86.0 Dehydration; E11.40 Type 2 diabetes mellitus with diabetic neuropathy, unspecified; I10 Essential (primary) hypertension; L98.499 Non-pressure chronic ulcer of skin of other sites with unspecified severity; K21.9 Gastro-esophageal reflux disease without esophagitis; N40.0 Benign prostatic hyperplasia without lower urinary tract symptoms; E11.622 Type 2 diabetes mellitus with other skin ulcer; E11.65 Type 2 diabetes mellitus with hyperglycemia; L84 Corns and callosities; E78.5 Hyperlipidemia, unspecified; Z87.440 Personal history of urinary (tract) infections; F41.9 Anxiety disorder, unspecified; F29 Unspecified psychosis not due to a substance or known physiological condition; M62.81 Muscle weakness (generalized); Z73.6 Limitation of activities due to disability; N13.9 Obstructive and reflux uropathy, unspecified; T43.595A Adverse effect of other antipsychotics and neuroleptics, initial encounter; Y92.89 Other specified places as the place of occurrence of the external cause; E11.621 Type 2 diabetes mellitus with foot ulcer; F25.9 Schizoaffective disorder, unspecified; N40.1 Benign prostatic hyperplasia with lower urinary tract symptoms; B96.89 Other specified bacterial agents as the cause of diseases classified elsewhere; Z79.84 Long term (current) use of oral hypoglycemic drugs; Z20.822 Contact with and (suspected) exposure to COVID-19; F01.50 Vascular dementia, unspecified severity, without behavioral disturbance, psychotic disturbance, mood disturbance, and anxiety; Z79.899 Other long term (current) drug therapy
CPT/HCPCS: 36415; 80048-TC; 80053-TC; 82962-TC; 83735-TC; 84100-TC; 85025-TC; 87081-TC; G0378; J0696; J1650; J1815; J3490; J7060